=== PATIENT | female | born 1975 | race Caucasian/White ===

== ENCOUNTER 2022-04-04 23:39 | Observation (INO) ==
[2022-04-05 01:07] LABS: Basophils # (auto) 0.03 K/uL (0-0.2); Basophils % (auto) 0.5 %; Eosinophils # (auto) 0.04 K/uL (0-0.50); Eosinophils % (auto) 0.6 %; Hematocrit (blood only) 36.3 % (34.1-44.9); Hemoglobin 12.5 g/dl (12.0-16.0); Immature Granulocytes # (auto) 0.06 K/uL (0.00-0.02); Immature Granulocytes % (auto) 0.9 %; Lymphocytes % (auto) 9.1 %; Mean Corpuscular Hemoglobin 29.5 pg (25.0-34.0); Mean Corpuscular Hgb Conc 34.4 g/dL (32.0-36.0); Mean Corpuscular Volume 85.6 fL (80.0-100.0); Mean Platelet Volume 10.9 fL (9.4-12.3); Monocytes % (auto) 9.1 %; Neutrophils # (auto) 5.26 K/uL (1.4-6.5); Neutrophils % (auto) 79.8 %; Platelet Count 198 K/uL (130-400); RBC Morphology Unremarkable; RDW Coefficient of Variation 15.5 % (11.5-14.5); RDW Standard Deviation 46.9 fL (36.4-46.3); Red Blood Count 4.24 M/uL (3.93-5.22); White Blood Count 6.59 K/ul (4.8-10.8)
[2022-04-05 01:12] LABS: Albumin Globulin Ratio 1.6 (0.9-2); Albumin Level 4.2 gm/dl (3.4-5.0); BUN Creatinine Ratio 8.8 (10-20); Bilirubin,Total 0.4 mg/dl (0.2-1.0); Calcium 9.6 mg/dl (8.5-10.1); Creatinine Clr Calc Pharmacy 96.7 ml/min; Est GFR (African American) 123.3 ml/min; Est GFR (Non-African American) 106.4 ml/min; Globulin 2.7 gm/dl (2.5-4.0); Total Protein 6.9 gm/dl (6.0-8.3)
--- NOTE | 2022-04-05 01:52 | Emergency Department Note ---
History of Present Illness General Chief complaint: Cough Stated complaint: SHARP UPPER LEFT CHEST PAIN Time Seen by Provider: 04/05/22 00:54 History of Present Illness This 46-year-old presents to the ER complaining of chest pain and breathing issues who has metastatic breast carcinoma who finished radiation 3 weeks ago and is not receiving chemotherapy Location: Chest Quality: Painful Severity: Moderate Duration: Past several weeks Timing: Started several weeks ago Context: Symptoms got worse and patient came in Modifying factors: better with rest; worse with activity Patient denies fever, chills, abdominal pain, leg pain or swelling. Home Medications Medication Instructions Recorded Confirmed Type Multiple Suppliments 1 dose PO DAILY 04/05/22 04/05/22 History dexamethasone 2 mg tablet 0 mg PO DIRECTED 04/05/22 04/05/22 History levetiracetam 500 mg tablet 0 mg PO BID 04/05/22 04/05/22 History ([place]) memantine 5 mg tablet 0 mg PO BID 04/05/22 04/05/22 History Allergies Allergy/AdvReac Type Severity Reaction Status Date / Time No Known Allergies Allergy Verified 04/05/22 00:16 Past Med/Surg History Medical History (Updated 04/05/22 @ 03:57 by Nighat Schumacher) Breast cancer Surgical History (Updated 04/05/22 @ 01:49 by Shawna Roman PA-C) No pertinent past surgical history Social History Smoking Status: Never smoker Preferred Language: Romansh Feels Safe at Home: Yes Review of Systems A total of 10 systems reviewed and were otherwise negative Physical Exam Vital Signs Vital Signs - 24 hr 04/04/22 23:45 04/05/22 00:26 04/05/22 02:04 Temperature 36.6 C Temperature Source Temporal Artery Scan Pulse Rate 102 H 89 90 Pulse Rate from SpO2 Sensor Respiratory Rate 18 24 15 Respiratory Effort / Characteristics Non-Labored Respiratory Depth Normal Blood Pressure 117/85 123/81 117/77 Blood Pressure Mean 95 95 90 Pulse Oximetry 93 91 95 Oxygen Delivery Method Room Air Room Air Room Air Sepsis Recent Fever Within 48 Hours No Sepsis New/Unexplained Change in Mental Status No Sepsis Action Taken by Nursing No Action Required 04/05/22 02:30 Temperature Temperature Source Pulse Rate 86 Pulse Rate from SpO2 Sensor 86 Respiratory Rate 19 Respiratory Effort / Characteristics Respiratory Depth Blood Pressure 120/80 Blood Pressure Mean 93 Pulse Oximetry 89 L Oxygen Delivery Method Room Air Sepsis Recent Fever Within 48 Hours Sepsis New/Unexplained Change in Mental Status Sepsis Action Taken by Nursing VITALS: Vitals are noted on the nurse's note and reviewed by myself. Vital sig ns pulse ox 91%. GENERAL: Pleasant female who appears uncomfortable, in no acute distress, nondiaphoretic, well-developed well-nourished. SKIN: The skin was without rashes, erythema, edema, or bruising. There is no tenting of the skin. Capillary reflex less than 2 seconds. HEAD: Normocephalic atraumatic. EARS: External auditory canals clear, tympanic membranes pearly tony without erythema or effusion bilaterally. EYES: Pupils equal round and reactive to light and accommodation. Conjunctivae without injection, sclerae without icterus. Extraocular movements intact. NOSE: Patent, turbinates without inflammation or discharge. MOUTH: Mucous membranes moist. Pharynx without erythema or exudate. Uvula midline. Airway patent. Tongue does not deviate. NECK: Supple without nuchal rigidity. No lymphadenopathy. No thyromegaly. Cervical spine is nontender. No JVD. HEART: Regular rate and rhythm LUNGS: Diminished breath sounds. no retractions or accessory muscle use. ABDOMEN: Positive bowel sounds x 4. Normal tympanic percussion. Soft, nontender, without masses or organomegaly. Beltrán sign negative. No guarding or rebound tenderness. No CVA tenderness MUSCULOSKELETAL: No muscle atrophy, erythema, or edema noted. NEURO: Patient was alert and oriented to person place and time. Normal sensation to light and sharp touch. No focal neurological deficits. Course Administered Medications Discontinued Medications Albuterol (Albut/Ipratrop 3mg/0.5mg Neb 3 Ml Vial) 3 ml NEB NOW STA; Protocol Stop: 04/05/22 02:59 Last Admin: 04/05/22 03:30 Dose: 3 ml Documented By: DP Dexamethasone Sodium Phosphate (DexamethasonePf 10 Mg/Ml Vial) 10 mg IV NOW ONE Stop: 04/05/22 02:59 Last Admin: 04/05/22 03:30 Dose: 10 mg Documented By: LA Ioversol (Optiray 320 500ml) 125 ml IV ONCE ONE Stop: 04/05/22 02:03 Last Admin: 04/05/22 02:02 Dose: 92 ml Documented By: CAROLE Medical Decision Making Medical Records Attestation: I reviewed the patient's medical records. Home Medications Current Medication List: was personally reviewed by me Laboratory Data Attestation: I reviewed the patient's lab results. Result diagrams: 04/05/22 00:40 04/05/22 00:40 Lab Results 04/05/22 04/05/22 04/05/22 Range/Units 00:40 00:40 02:40 WBC 6.59 (4.8-10.8) K/ul RBC 4.24 (3.93-5.22) M/uL Hgb 12.5 (12.0-16.0) g/dl Hct 36.3 (34.1-44.9) % MCV 85.6 (80.0-100.0) fL MCH 29.5 (25.0-34.0) pg MCHC 34.4 (32.0-36.0) g/dL RDW Std Deviation 46.9 H (36.4-46.3) fL RDW Coeff of Dorene 15.5 H (11.5-14.5) % Plt Count 198 (130-400) K/uL MPV 10.9 (9.4-12.3) fL Immature Gran % (Auto) 0.9 % Neut % (Auto) 79.8 % Lymph % (Auto) 9.1 % Flagler % (Auto) 9.1 % Eos % (Auto) 0.6 % Baso % (Auto) 0.5 % Neut # (Auto) 5.26 (1.4-6.5) K/uL Lymph # (Auto) 0.60 L (1.2-3.4) K/uL Flagler # (Auto) 0.60 (0.24-0.82) K/uL Eos # (Auto) 0.04 (0-0.50) K/uL Baso # (Auto) 0.03 (0-0.2) K/uL Immature Gran # (Auto) 0.06 H (0.00-0.02) K/uL RBC Morphology Unremarkable Sodium 136 (136-145) mmol/L Potassium 4.0 (3.5-5.1) mmol/L Chloride 100 (98-107) mmol/L Carbon Dioxide 27 (21-32) mmol/L Anion Gap 9 (3-11) BUN 6 (6-23) mg/dl Creatinine 0.68 (0.6-1.2) mg/dl Est Cr Clr Drug Dosing 96.7 ml/min Est GFR ( Amer) 123.3 ml/min Est GFR (Non-Af Amer) 106.4 ml/min BUN/Creatinine Ratio 8.8 L (10-20) Glucose 99 (70-99(Fasting)) mg/dl Calcium 9.6 (8.5-10.1) mg/dl Total Bilirubin 0.4 (0.2-1.0) mg/dl AST 38 (13-39) U/L ALT 24 (7-52) U/L Alkaline Phosphatase 68 (34-104) U/L Troponin I High Sens 33.1 H (0-14) pg/ml Total Protein 6.9 (6.0-8.3) gm/dl Albumin 4.2 (3.4-5.0) gm/dl Globulin 2.7 (2.5-4.0) gm/dl Albumin/Globulin Ratio 1.6 (0.9-2) SARS-CoV-2, RNA, NAAT NEGATIVE (NEGATIVE) Imaging Data Attestation: I personally reviewed and interpreted this imaging study as follows: MDM Narrative Prior records/ancillary studies reviewed. Triage Nursing notes reviewed. Additional history obtained from family. The patient's history was concerning for chest pain. Differential diagnosis: Etiologies such as cardiac ischemia, aortic dissection, pulmonary embolism, pneumonia, pneumothorax, musculoskeletal, infections, pericarditis, myocarditis, esophageal rupture, gastrointestinal, as well as others were entertained. Physical examination: As above. ER treatment provided: An order was placed for continuous cardiac monitoring. The monitor shows a rate of 60-100 with a sinus rhythm. Patient declined pain meds, nebulizer, steroids, Zosyn, vancomycin On reassessment the patient felt better. Diagnostic interpretation by me: The electrocardiogram was negative for pathologic change. Order for chest pain EKG: Normal sinus, normal intervals, no acute ST-T wave changes. Normal sinus rhythm interpreted by myself I think arrhythmia is unlikely. EKG shows normal sinus rhythm with no interval abnormalities such as QT prolongation or WPW. There are no findings to suggest Brugada syndrome. Cardiac monitoring in the emergency department reveals no tachycardic or bradycardic dysrhythmia. Hypertrophic cardiomyopathy was considered but there are no clear historical elements pointing toward this. EKG is not suggestive. The QRS voltage is not extremely large and there are no suggestive Q waves. The labs revealed elevated troponin, negative COVID Imaging studies: Chest x-ray with multiple nodules concerning for metastatic cancer per my interpretation. No free air CTA CHEST: No pulmonary emboli. Diffuse pulmonary nodules. Bilateral perihilar masses compressing the broncho- vasculature. Right middle lobe segmental atelectasis. Trace left-sided pleural effusion. No pneumothorax. Normal aorta. No pericardial effusion. Multiple liver metastases. Right breast skin thickening and underlying masses. Radiologist: Michele Arango MD HEART SCORE: Hx: high/mod/low suspicion: 0 ECG: ST depression/nonspecific changes/normal: 0 Age: Greater than 65/45-64/less than 45: 0 Risk factors: (Hypertension, hyperlipidemia, diabetes, coronary disease, tobacco use, cocaine use): 1 Troponin: Greater than 2 times normal limits/1-2 times normal limits/normal: 1 Total: 2 Consultation: A consultation was placed with the hospitalist. The case was discussed and diagnostics were reviewed. The patient was evaluated in the ER for further treatment. Exam and history seem consistent with metastatic breast cancer with increased progression in the lungs. Patient could have an underlying pneumonia 2. Antibiotics were added. Patient was short of breath. Sats were 89%. Medicine was consulted. She will be admitted By the evaluation outlined above emergent etiologies such as aortic dissection, pulmonary embolism, pneumothorax, pericarditis, myocarditis, gastrointestinal, as well as others were deemed relatively unlikely. The pt informed about the findings as listed above. All questions were answered and pleased with the treatment. The chart was completed utilizing [employer] Speech voice recognition software. Grammatical errors, random word insertions, pronoun errors, and incomplete sentences are an occassional consequence of this system due to software limitations, ambient noise, and hardware issues. Any formal questions or concerns about the content, text, or information contained within the body of this dictation should be directly addressed to the physician back office medical assistant for clarification. Impression & Plan Chest pain, Acute dyspnea, Breast cancer metastasized to lung Discharge Plan Visit Data Chief Complaint: Cough Stated Complaint: SHARP UPPER LEFT CHEST PAIN ED Provider: Michele Rocha ED Midlevel Provider: Shawna Roman Discharge Problem: Chest pain, Acute dyspnea, Breast cancer metastasized to lung Patient Disposition: Admitted As Inpatient Condition: Fair Forms Stand Alone Forms: My [facility] [employer] Prescriptions Prescriptions: No Action levetiracetam [Keppra] 500 mg Tablet 0 mg PO BID Rx Instructions: PT UNSURE OF STRENGTH, UNABLE TO VERIFY dexamethasone 2 mg Tablet 0 mg PO DIRECTED Rx Instructions: UNABLE TO VERIFY memantine 5 mg Tablet 0 mg PO BID Rx Instructions: PT UNSURE OF STRENGTH, TAKES 1/2 TAB BID. UNABLE TO VERIFY Multiple Suppliments 1 dose PO DAILY Rx Instructions: PER PT "TAKE MULTIPLE SUPPLIMENTS & VITAMINS DAILY". Referrals Referrals: Osbaldo Garnica MD [Primary Care Provider] -
[2022-04-05] MEDS ORDERED: OPTIRAY 320 500ml IV ONE (02:02)
[2022-04-05 02:04] LABS: Troponin I High Sensitivity 33.1 pg/ml (0-14)
[2022-04-05] MEDS ORDERED: dexAMETHasone**PF** 10 MG/ML VIAL IV ONE (02:58)
[2022-04-05] MEDS ORDERED: ALBUT/IPRATROP 3MG/0.5MG NEB 3 ML VIAL NEB STA (02:58)
--- NOTE | 2022-04-05 03:42 | History & Physical Report ---
Date of Service April 05, 2022 Assessment & Plan (1) Breast cancer metastasized to lung: Plan: Breast cancer metastasized to lung/secondary bacterial pneumonia/hypoxia- Hypoxia likely secondary to metastatic disease and secondary bacterial infection Received dexamethasone 10 mg IV in ED Dexamethasone 6 mg IV every 8 hours Vancomycin IV per pharmacokinetic monitoring Zosyn 4.5 g IV every 8 hours Duonebs every 4 hours while awake and every 2 hours when necessary. Guaifenesin extended release 500 mg p.o. twice daily Sputum gram stain and culture Coordinate care with radiation oncology at [facility] (2) Elevated troponin: Plan: The patient will be admitted to telemetry for serial cardiac enzymes, serial EKG's, cardiac rhythm monitoring and a 2-D echocardiogram with Dopplers. Likely supply demand mismatch Suspect some element of pulmonary hypertension secondary to metastatic disease (3) Chest pain: Plan: Likely combination of metastatic disease and infection Presently undergoing radiation therapy for pathologic sternal fracture (4) Acute dyspnea: (5) Pneumonia: History of Present Illness Chief Complaint: The patient presents to the emergency department with complaint of worsening shortness of breath, cough changing from clear to yellowish sputum, chest pain worse with breathing, and increasing size of right breast. Primary Care Provider: Osbaldo Garnica MD The patient is a 46-year-old female with a past medical history including metastatic breast cancer to lung, who presents to the emergency department with symptoms as noted above. She has been undergoing radiation therapy with radiation oncology at [facility], and has not yet undergone any chemotherapy or hormone therapy. Allergies Allergy/AdvReac Type Severity Reaction Status Date / Time No Known Allergies Allergy Verified 04/05/22 00:16 Home Medications Medication Instructions Recorded Confirmed Type Multiple Suppliments 1 dose PO DAILY 04/05/22 04/05/22 History dexamethasone 2 mg tablet 0 mg PO DIRECTED 04/05/22 04/05/22 History levetiracetam 500 mg tablet 0 mg PO BID 04/05/22 04/05/22 History (Keppra) memantine 5 mg tablet 0 mg PO BID 04/05/22 04/05/22 History Past Med/Surg History Medical History (Updated 04/05/22 @ 04:19 by Gilberto Nowak MD) Breast cancer Surgical History (Updated 04/05/22 @ 01:49 by Shawna Roman PA-C) No pertinent past surgical history Social History Smoking Status: Never smoker Preferred Language: Luxembourgish Feels Safe at Home: Yes Review of Systems Review of Systems: The patient denies palpitations, cough, lower extremity swelling, sore throat, fevers, chills, sweats, nausea, vomiting, diarrhea , constipation, abdominal pain, pelvic pain, blood in urine or stool, dysuria, urinary frequency or urgency, lightheadedness, dizziness, headache, memory loss, loss of consciousness, rash, abnormal bruising or bleeding, imbalance, focal or generalized weakness, numbness or tingling in arms or legs, generalized arthralgias or myalgias, back or neck pain, or night sweats. The review of systems is otherwise negative other than for that already noted above, and at least 10 systems have been reviewed. Physical Exam Physical Exam: The patient is awake, alert and oriented 3, well developed and well nourished, normocephalic and atraumatic, lying in bed and in no acute distress. HEENT--PERRL, EOMI, mucous membranes and oropharynx dry. Neck--supple. No JVD. No bruits. Thyroid normal, trachea midline, no adenopathy. Heart--normal S1 and S2. No murmurs, rubs or gallops. Lungs--coarse breath sounds bilaterally. no respiratory distress, no accessory muscle use. Abdomen--normal bowel sounds and soft. Nontender. Nondistended, no hernias or masses, no organomegaly. Extremities--no cyanosis or clubbing. No edema. Dermatologic--normal skin turgor, normal color, no abnormal lymph nodes, no rash. Neurologic--cranial nerves II through XII grossly intact. Rheumatologic--normal range of motion. Psychiatric--normal affect. Results & Data Results & Data ([facility]) Vital Signs (Past 12 Hours) Vital Signs Temp Pulse Resp BP Pulse Ox O2 Del Method 04/05/22 02:30 86 19 120/80 89 L Room Air 04/05/22 02:04 90 15 117/77 95 Room Air 04/05/22 00:26 89 24 123/81 91 Room Air 04/04/22 23:45 36.6 C 102 H 18 117/85 93 Room Air Laboratory Results Laboratory Results WBC 6.59 K/ul (4.8-10.8) 04/05/22 00:40 RBC 4.24 M/uL (3.93-5.22) 04/05/22 00:40 Hgb 12.5 g/dl (12.0-16.0) 04/05/22 00:40 Hct 36.3 % (34.1-44.9) 04/05/22 00:40 MCV 85.6 fL (80.0-100.0) 04/05/22 00:40 MCH 29.5 pg (25.0-34.0) 04/05/22 00:40 MCHC 34.4 g/dL (32.0-36.0) 04/05/22 00:40 RDW Std Deviation 46.9 fL (36.4-46.3) H 04/05/22 00:40 RDW Coeff of Dorene 15.5 % (11.5-14.5) H 04/05/22 00:40 Plt Count 198 K/uL (130-400) 04/05/22 00:40 MPV 10.9 fL (9.4-12.3) 04/05/22 00:40 Immature Gran % (Auto) 0.9 % 04/05/22 00:40 Neut % (Auto) 79.8 % 04/05/22 00:40 Lymph % (Auto) 9.1 % 04/05/22 00:40 Maury % (Auto) 9.1 % 04/05/22 00:40 Eos % (Auto) 0.6 % 04/05/22 00:40 Baso % (Auto) 0.5 % 04/05/22 00:40 Neut # (Auto) 5.26 K/uL (1.4-6.5) 04/05/22 00:40 Lymph # (Auto) 0.60 K/uL (1.2-3.4) L 04/05/22 00:40 Maury # (Auto) 0.60 K/uL (0.24-0.82) 04/05/22 00:40 Eos # (Auto) 0.04 K/uL (0-0.50) 04/05/22 00:40 Baso # (Auto) 0.03 K/uL (0-0.2) 04/05/22 00:40 Immature Gran # (Auto) 0.06 K/uL (0.00-0.02) H 04/05/22 00:40 RBC Morphology Unremarkable 04/05/22 00:40 Sodium 136 mmol/L (136-145) 04/05/22 00:40 Potassium 4.0 mmol/L (3.5-5.1) 04/05/22 00:40 Chloride 100 mmol/L (98-107) 04/05/22 00:40 Carbon Dioxide 27 mmol/L (21-32) 04/05/22 00:40 Anion Gap 9 (3-11) 04/05/22 00:40 BUN 6 mg/dl (6-23) 04/05/22 00:40 Creatinine 0.68 mg/dl (0.6-1.2) 04/05/22 00:40 Est Cr Clr Drug Dosing 96.7 ml/min 04/05/22 00:40 Est GFR ( Amer) 123.3 ml/min 04/05/22 00:40 Est GFR (Non-Af Amer) 106.4 ml/min 04/05/22 00:40 BUN/Creatinine Ratio 8.8 (10-20) L 04/05/22 00:40 Glucose 99 mg/dl (70-99(Fasting)) 04/05/22 00:40 Calcium 9.6 mg/dl (8.5-10.1) 04/05/22 00:40 Total Bilirubin 0.4 mg/dl (0.2-1.0) 04/05/22 00:40 AST 38 U/L (13-39) 04/05/22 00:40 ALT 24 U/L (7-52) 04/05/22 00:40 Alkaline Phosphatase 68 U/L (34-104) 04/05/22 00:40 Troponin I High Sens 33.1 pg/ml (0-14) H 04/05/22 00:40 Total Protein 6.9 gm/dl (6.0-8.3) 04/05/22 00:40 Albumin 4.2 gm/dl (3.4-5.0) 04/05/22 00:40 Globulin 2.7 gm/dl (2.5-4.0) 04/05/22 00:40 Albumin/Globulin Ratio 1.6 (0.9-2) 04/05/22 00:40 SARS-CoV-2, RNA, NAAT NEGATIVE (NEGATIVE) 04/05/22 02:40 Code Status & VTE Plan Code Status Full code VTE Prophylaxis Plan VTE Prophylaxis will be ordered: Yes PG Care Time/CCT Total # of Minutes Spent Total Time Spent with Patient: Total time spent is greater than 50% in coordination of care (as documented) at patient's floor/unit and/or counseling patient: Coding Level of Care Code 17390 Initial Inpt Care Lvl 3 Diagnoses Breast cancer metastasized to lung C50.919; C78.00 Elevated troponin R77.8 Chest pain R07.9 Acute dyspnea R06.00 Pneumonia J18.9
[2022-04-05] MEDS ORDERED: PIPERACILLIN/TAZOBACTAM 4.5 GM/120 ML BAG IV ONE (03:57)
[2022-04-05] MEDS ORDERED: VANCOMYCIN CONSULT ACTIVE PRN ×2 (03:57→04:53)
[2022-04-05] MEDS ORDERED: VANCOMYCIN HCL 1,250 MG in SODIUM CHLORIDE 0.9% 500 ML IV ONE (03:57)
[2022-04-05] MEDS ORDERED: ONDANSETRON INJ 2 MG/ML 2 ML VIAL IV PRN (04:53)
[2022-04-05] MEDS ORDERED: ACETAMINOPHEN 325 MG TAB PO PRN (04:53)
[2022-04-05] MEDS: ALBUT/IPRATROP 3MG/0.5MG NEB 3 ML VIAL NEB SCH ×2 (05:53→10:30)
--- NOTE | 2022-04-05 07:58 | XRay Report ---
XR chest 1V portable HISTORY: 46 years-old Female pain acute chest pain COMPARISON: CTA chest of same day, chest radiograph 02/03/2022 TECHNIQUE: AP view of the chest FINDINGS: Cardiac silhouette is upper limits of normal in size. Bilateral hilar prominence. Reticular nodular o pacities are present along with innumerable pulmonary metastasis. 7.3 cm dominant left upper lobe/mariah gular mass appears to have increased in size from prior. Small left pleural effusion. No pneumothorax . Osseous metastatic disease of the sternum is better appreciated on the chest CT. IMPRESSION: 1. Progressively worsened pulmonary metastatic disease. 2. Interstitial coarsening has also worsened from the prior study which may represent lymphangitic ca rcinomatosis versus superimposed pulmonary edema. 3. Small left pleural effusion. ACT 112: Negative or not required by law. The above report was generated using voice recognition software. It may contain grammatical, syntax o r spelling errors. Electronically signed by: Peña Powers M.D. 04/05/2022 7:57 AM
[2022-04-05] MEDS ORDERED: PIPERACILLIN/TAZOBACTAM 3.375 GM in DEXTROSE 5% 100 ML IV SCH (08:00)
[2022-04-05] MEDS: dexAMETHasone 6 MG in SYRINGE 0 ML IV SCH ×2 (09:17→16:38)
[2022-04-05] MEDS: levETIRAcetam 500 MG TAB PO SCH (09:25)
[2022-04-05] MEDS: MEMANTINE HCL 10 MG TAB PO SCH ×2 (09:25→20:37)
[2022-04-05] MEDS: ENOXAPARIN INJ 40 MG/0.4 ML SYR SQ SCH (09:25)
--- NOTE | 2022-04-05 09:28 | CT Scan Report ---
CT angio chest PE protocol CLINICAL HISTORY: PE, known breast CA w/ mets TECHNIQUE: Multidetector row helical CT of the chest was performed with angiographic protocol. Gandara l and sagittal reformations were obtained. Coronal and sagittal MIPS were obtained from the axial israel a set and were submitted for review. Automated dose lowering techniques and/or adjustment according to patient size were utilized for this exam. CT DOSE: 253.12 mGy.cm Comparison: Comparison is made to CTA chest 02/04/2022 FINDINGS: Lungs and pleura: Innumerable pulmonary nodules are seen including a dominant left upper lobe mass me asuring 67 mm. Airways are narrowed by bilateral hilar masses and there is postobstructive atelectasi s most prominent in the right middle lobe. There is interlobular septal thickening. There is a trace left pleural effusion, unchanged from prior exam. Heart and pericardium: Heart size is normal. No pericardial effusion. Vessels: No evidence of pulmonary embolism. Narrowing of the pulmonary vasculature biperihilar mass i s noted. Mediastinum and joy: Unremarkable. Chest wall and lower neck: Primary breast mass in the right breast is again noted. 21 x 25 mm mass is in the right axilla with additional subcentimeter nodes. Skin thickening is noted about the right br east. Abdomen: Partial visualization of numerous liver masses. Bones: Unremarkable. IMPRESSION: 1. No evidence of pulmonary embolism. 2. Numerous pulmonary nodules and masses, similar in appearance to prior exam. 3. Left pleural effusion and pulmonary traverses the expected disease. 4. Postobstructive narrowing in the airways most prominently in the right middle lobe. 5. Right breast mass and lymph nodes as above. ACT 112: Negative or not required by law. Electronically signed by: Zoltan Vincent M.D. 04/05/2022 9:26 AM
[2022-04-05] MEDS: VANCOMYCIN HCL 1,250 MG in SODIUM CHLORIDE 0.9% 250 ML IV SCH ×2 (10:34→22:42)
[2022-04-05 12:03] LABS: Appearance Urine Clear (Clear); Bacteria Urine Automated Negative (Negative); Bilirubin Urine Negative (Negative); Blood Urine 2+ (Negative); Cast Urine Automated 0 /lpf (0-5); Color Urine Yellow; Epithelial Cell Urine Auto 0-5 /lpf (0-5); Glucose Urine UA Negative (Negative); Ketones Urine Trace (Negative); Leukocyte Esterase Urine Negative (Negative); Nitrite Urine Negative (Negative); Protein Urine Negative (Negative); Specific Gravity Urine 1.017 (1.000-1.030); Urobilinogen Urine Negative (Negative); WBC Urine Automated 0 /hpf (0-5)
[2022-04-05] MEDS ORDERED: ALBUT/IPRATROP 3MG/0.5MG NEB 3 ML VIAL NEB PRN (13:03)
[2022-04-05] MEDS: ADVANCED PROBIOTIC 1250 MG CAPSULE PO SCH (13:22)
--- NOTE | 2022-04-05 13:43 | Pharmacy Report ---
Pharmacy PK ABX Note - Date of Service April 05, 2022 - Assessment and Plan 46 year old F receiving Vancomycin and Zosyn for treatment of possible pneumonia. * PMHx significant for breast cancer with metastasis to lung currently undergoing radiation. * Presents with hypoxia but now 98% on room air. Afebrile. No white count. Patient is not neutropenic. Renal fxn at baseline. * Sputum culture ordered but not collected yet. Covid negative. * Recommended adding atypical coverage to provider who agreed with switch from Zosyn to Levaquin. Urine legionella and MRSA nasal swab ordered. Procalcitonin ordered for tomorrow morning as well but may not be reliable in a patient with active metastatic disease. Plan Vancomycin * Loading dose: 1250 mg IV x 1 * Maintenance dose: 1250 mg IV every 12 hours * Regimen is predicted to achieve target AUC/PATY of 400-600 mg/L.hr * Level will be ordered if therapy extends beyond 48 hours Pharmacy will continue to follow and will adjust dose/frequency as necessary. Thank you. Pharmacy has transitioned to AUC monitoring for vancomycin. AUC/PATY is the preferred PK/PD target and is associated with decreased risk of nephrotoxicity compared to traditional trough targets.
[2022-04-05] MEDS ORDERED: levoFLOXacin/D5W 750 MG/150 ML BAG IV SCH (14:00)
--- NOTE | 2022-04-05 14:04 | Hospitalist Progress Note ---
Date of Service April 05, 2022 Assessment & Plan (1) Breast cancer metastasized to lung: Plan: Breast cancer metastasized to lung Not currently on Chemotherapy, but received radiation therapy to the brain Chest x ray shows evidence of some mild congestion CTA did not show any evidence of PE Hypoxia likely secondary to metastatic disease and pulmonary congestion Received dexamethasone 10 mg IV in ED Dexamethasone 6 mg IV every 8 hours Vancomycin IV per pharmacokinetic monitoring Zosyn 4.5 g IV every 8 hours Duonebs every 4 hours while awake and every 2 hours when necessary. Guaifenesin extended release 500 mg p.o. twice daily Coordinate care with radiation oncology at [facility] (2) Elevated troponin: Plan: The patient will be admitted to telemetry for serial cardiac enzymes, serial EKG's, cardiac rhythm monitoring and a 2-D echocardiogram with Dopplers. Likely supply demand mismatch Trop has been trending down (3) Chest pain: Plan: Likely combination of metastatic disease No evidence of ACS Trops trending down EKG with no ST changes (4) Acute dyspnea: (5) Pneumonia: Plan Hopefully d/c in the next 24 hrs Admission and Anticipated Discharge Date Admission Date: April 05, 2022 Subjective patient seen an examined today, says she feels better Review of Systems Review of Systems: All systems reviewed are negative, apart from the ones contained in the history. Physical Exam Physical Exam: The patient is awake, alert and oriented 3, well developed and well nourished, normocephalic and atraumatic, lying in bed and in no acute distress. HEENT--PERRL, EOMI, mucous membranes and oropharynx mildly dry Neck--supple. No JVD. No bruits. Thyroid normal, trachea midline, no adenopathy. Heart--normal S1 and S2. No murmurs, rubs or gallops. Lungs--Reduced air entry on auscultation Abdomen--normal bowel sounds and soft. Mild epigastric and left sided abdominal pain Extremities--no cyanosis or clubbing. No edema. Dermatologic--normal skin turgor, normal color, no abnormal lymph nodes, no rash. Neurologic--cranial nerves II through XII grossly intact. Rheumatologic--normal range of motion. Psychiatric--normal affect. Results & Data Results & Data ([facility]) Vital Signs (Past 12 Hours) Vital Signs Temp Pulse Pulse Resp BP BP Pulse Ox 04/05/22 11:18 98.4 F 107 H 18 117/70 98 04/05/22 10:30 113 H 18 95 04/05/22 08:20 98.2 F 99 H 18 97/83 L 96 04/05/22 04:43 88 04/05/22 05:53 69 16 91 04/05/22 04:54 98.8 F 101 H 20 118/73 95 04/05/22 04:16 92 04/05/22 04:16 105/72 04/05/22 04:10 88 L 04/05/22 04:00 92 04/05/22 03:50 92 04/05/22 03:40 96 04/05/22 03:30 87 105/70 89 L 04/05/22 03:07 90 133/64 91 04/05/22 02:30 86 19 120/80 89 L 04/05/22 02:04 90 15 117/77 95 O2 Del Method 04/05/22 11:18 Room Air 04/05/22 10:30 Room Air 04/05/22 08:20 Room Air 04/05/22 04:43 04/05/22 05:53 Room Air 04/05/22 04:54 Room Air 04/05/22 04:16 04/05/22 04:16 04/05/22 04:10 04/05/22 04:00 04/05/22 03:50 04/05/22 03:40 04/05/22 03:30 Room Air 04/05/22 03:07 Room Air 04/05/22 02:30 Room Air 04/05/22 02:04 Room Air PG Care Time/CCT Total # of Minutes Spent Total Time Spent with Patient: Total time spent is greater than 50% in coordination of care (as documented) at patient's floor/unit and/or counseling patient: Coding Level of Care Code 37426 Subseq Hosp Care Lvl 2 Diagnoses Breast cancer metastasized to lung C50.919; C78.00 Elevated troponin R77.8 Chest pain R07.9 Acute dyspnea R06.00 Pneumonia J18.9 Time Spent (min) 35
--- NOTE | 2022-04-05 18:12 | XCELERA ---
[id number]
[2022-04-06] MEDS: dexAMETHasone 6 MG in SYRINGE 0 ML IV SCH ×2 (00:12→07:52)
--- NOTE | 2022-04-06 05:18 | Electrocardiogram Report ---
Test Reason : Blood Pressure : / mmHG Vent. Rate : 079 BPM Atrial Rate : 079 BPM P-R Int : 172 ms QRS Dur : 072 ms QT Int : 362 ms P-R-T Axes : 054 008 041 degrees QTc Int : 415 ms Normal sinus rhythm with sinus arrhythmia Normal ECG When compared with ECG of 03-FEB-2022 23:33, No significant change was found Confirmed by Corby Rock ([id number]) on 04/06/2022 5:17:44 AM Referred By: REFERRED SELF Confirmed By:Corby Rock
[2022-04-06] MEDS: ENOXAPARIN INJ 40 MG/0.4 ML SYR SQ SCH (07:51)
[2022-04-06] MEDS: ADVANCED PROBIOTIC 1250 MG CAPSULE PO SCH (07:52)
[2022-04-06] MEDS: levETIRAcetam 500 MG TAB PO SCH (07:53)
[2022-04-06 08:00] LABS: Basophils # (auto) 0.02 K/uL (0-0.2); Basophils % (auto) 0.2 %; Eosinophils # (auto) 0.01 K/uL (0-0.50); Eosinophils % (auto) 0.1 %; Immature Granulocytes # (auto) 0.09 K/uL (0.00-0.02); Immature Granulocytes % (auto) 0.8 %; Lymphocytes # (auto) 0.56 K/uL (1.2-3.4); Mean Corpuscular Hemoglobin 29.3 pg (25.0-34.0); Mean Corpuscular Hgb Conc 34.3 g/dL (32.0-36.0); Mean Corpuscular Volume 85.4 fL (80.0-100.0); Mean Platelet Volume 11.1 fL (9.4-12.3); Monocytes # (auto) 0.58 K/uL (0.24-0.82); Monocytes % (auto) 5.2 %; Neutrophils # (auto) 9.99 K/uL (1.4-6.5); Neutrophils % (auto) 88.7 %; Platelet Count 200 K/uL (130-400); RDW Coefficient of Variation 15.9 % (11.5-14.5); RDW Standard Deviation 48.7 fL (36.4-46.3); White Blood Count 11.25 K/ul (4.8-10.8)
[2022-04-06 08:36] LABS: Albumin Globulin Ratio 1.4 (0.9-2); Albumin Level 3.8 gm/dl (3.4-5.0); BUN Creatinine Ratio 16.7 (10-20); Bilirubin,Total 0.3 mg/dl (0.2-1.0); Calcium 9.3 mg/dl (8.5-10.1); Creatinine Clr Calc Pharmacy 99.2 ml/min; Est GFR (African American) 124.5 ml/min; Est GFR (Non-African American) 107.4 ml/min; Globulin 2.8 gm/dl (2.5-4.0); Magnesium 2.2 mg/dl (1.7-2.4); Total Protein 6.6 gm/dl (6.0-8.3)
[2022-04-06] MEDS: MEMANTINE HCL 10 MG TAB PO SCH (09:56)
[2022-04-06] MEDS: VANCOMYCIN HCL 1,250 MG in SODIUM CHLORIDE 0.9% 250 ML IV SCH (10:28)
[2022-04-06] MEDS ORDERED: levoFLOXacin 750 MG TAB PO SCH (14:00)
--- NOTE | 2022-04-06 16:29 | Discharge Summary ---
Date of Service April 06, 2022 Admission HPI Per Admitting Provider The patient is a 46-year-old female with a past medical history including metastatic breast cancer to lung, who presents to the emergency department with symptoms as noted above. She has been undergoing radiation therapy with radiation oncology at [facility], and has not yet undergone any chemotherapy or hormone therapy. Principal Diagnosis Metastatic lung disease Discharge Exam The patient is awake, alert and oriented 3, well developed and well nourished, normocephalic and atraumatic, lying in bed and in no acute distress. HEENT--PERRL, EOMI, mucous membranes and oropharynx mildly dry Neck--supple. No JVD. No bruits. Thyroid normal, trachea midline, no adenopathy. Heart--normal S1 and S2. No murmurs, rubs or gallops. Lungs--Reduced air entry on auscultation Abdomen--normal bowel sounds and soft. Mild epigastric and left sided abdominal pain Extremities--no cyanosis or clubbing. No edema. Dermatologic--normal skin turgor, normal color, no abnormal lymph nodes, no rash. Neurologic--cranial nerves II through XII grossly intact. Rheumatologic--normal range of motion. Psychiatric--normal affect. Discharge Data Allergies Allergy/AdvReac Type Severity Reaction Status Date / Time No Known Allergies Allergy Verified 04/05/22 00:16 Consultations 04/05/22 02:58 ED Decision to Admit Stat Ordered Studies 04/05/22 01:05 CT angio chest PE protocol Urgent Hospital Course (1) Breast cancer metastasized to lung: Breast cancer metastasized to lung Not currently on Chemotherapy, but received radiation therapy to the brain Chest x ray shows evidence of some mild congestion CTA did not show any evidence of PE Hypoxia likely secondary to metastatic disease and pulmonary congestion Received dexamethasone 10 mg IV in ED Dexamethasone 6 mg IV every 8 hours Vancomycin IV per pharmacokinetic monitoring Zosyn 4.5 g IV every 8 hours Duonebs every 4 hours while awake and every 2 hours when necessary. Guaifenesin extended release 500 mg p.o. twice daily Coordinate care with radiation oncology at [facility] (2) Elevated troponin: The patient will be admitted to telemetry for serial cardiac enzymes, serial EKG's, cardiac rhythm monitoring and a 2-D echocardiogram with Dopplers. Likely supply demand mismatch Trop has been trending down (3) Chest pain: Likely combination of metastatic disease No evidence of ACS Trops trending down EKG with no ST changes (4) Acute dyspnea: (5) Pneumonia: Plan Hopefully d/c in the next 24 hrs Total Time Total Time Spent Total Time Spent (In Minutes): 35 Discharge Plan Discharge Items Patient Disposition: Home - Self-Care Reason For Visit: MET BREAST CA TO LUNG, PNEUMONIA Discharge Diagnosis: Pulmonary metastatic disease Condition on Discharge: Fair Activity: Resume your previous activity Non-emergency contact: Primary Care Provider, Oncologist and Customs Inspector Call non-emergency contact if: you have any medication questions Follow-up/Referrals: Osbaldo Garnica MD [Primary Care Provider] - 04/18/22 11:20 am Diet: Regular Addtl Attending Provider Instructions: please make appointment to follow up with your oncologist Pending Studies at Discharge: No Stand-Alone Forms: [employer], Smoking Cessation Medications and DC Order Prescriptions: New levofloxacin 500 mg tablet 500 mg PO DAILY 3 Days Qty: 3 0RF Continued levetiracetam [Keppra] 500 mg Tablet 0 mg PO BID Rx Instructions: PT UNSURE OF STRENGTH, UNABLE TO VERIFY dexamethasone 2 mg Tablet 0 mg PO DIRECTED Rx Instructions: UNABLE TO VERIFY memantine 5 mg Tablet 0 mg PO BID Rx Instructions: PT UNSURE OF STRENGTH, TAKES 1/2 TAB BID. UNABLE TO VERIFY Multiple Suppliments 1 dose PO DAILY Rx Instructions: PER PT "TAKE MULTIPLE SUPPLIMENTS & VITAMINS DAILY". Discharge Orders: Discharge Order (Routine); Ordered 04/06/22 Ordered By: Gabriel Vyas Admission Data Admit Date/Time: 04/05/22 03:40 Attending Provider: Gabriel Vyas Admit Provider: Gilberto Nowak Primary Care Provider: Osbaldo Garnica Other Providers: Gilberto Nowak Other Interventions: Discharge Summary Assessment (RN) Last Done: 04/06/22 12:55 Coding Level of Care Code D/C DAY MANAGEMENT >30 MINS Diagnoses Breast cancer metastasized to lung C50.919; C78.00 Elevated troponin R77.8 Chest pain R07.9 Acute dyspnea R06.00 Pneumonia J18.9 Time Spent (min) 35
== END 2022-04-06 14:50 | disposition home or self-care (01) ==
LOC: ED 23:39 → SUATTDRO 04-05 03:40 → 2E 04-05 03:40 → INTOOBSV 04-05 03:40 → 2E 04-05 04:19

== ENCOUNTER 2022-05-15 18:33 | Inpatient (IN) ==
--- NOTE | 2022-05-15 19:33 | Emergency Department Note ---
Impression & Plan Acute respiratory failure with hypoxia, Breast cancer metastasized to lung, Elevated troponin, Acute dyspnea ED Provider Note NAME: OLIVER WALTERS AGE: 46 SEX: F : 1975 ARRIVES VIA: Walk-In INFORMANT: Patient, ED PROVIDER(S): Edy Hercules MD Chief Complaint: Shortness of breath HPI: Patient presents due to concern for shortness of breath which she states is exertional and has been worsening over the last 2 weeks. Patient states that she tried to ameliorate her symptoms by resting as well as increasing her hydration and nutrition status. The patient does have a known history of breast cancer with metastatic disease to lung and brain. Patient was admitted in March for similar symptoms. Patient has had cough that is nonproductive. No known history of PE or DVT. The patient denies any unilateral calf swelling or pain. No recent surgeries or procedures. Patient denies any fevers or chills. Patient states she is compliant her medications. The patient does still take 2 mg of dexamethasone daily. Patient denies any nausea or vomiting. ROS: See HPI for pertinent positives and negatives. A total of 10 systems were reviewed and otherwise negative. Past medical history: See below Surgical history: See below Social history: See below Physical Exam: GENERAL: Increased work of breathing, moderate distress, nasal cannula in place. EYE EXAM: Normal conjunctiva. PERRL, no anisocoria and EOM's grossly intact w/o pain. NECK: Supple, no nuchal rigidity, no adenopathy, non-tender. No signs of meningismus. FROM of the neck with good chin to chest and neck extension. No stridor. LUNGS: Coarse sounds throughout. Tachypnea and increased work of breathing noted. HEART: Tachycardic and regular, no MRG. ABDOMEN: Abdomen soft, non-tender, normo-active bowel sounds, no masses, no rebound or guarding. BACK: No CVA TTP. SKIN: No rashes and no bruising. UPPER EXTREMITIES: Upper extremities are grossly normal. LOWER EXTREMITIES: Grossly normal, no edema. NEURO EXAM: A&O x3, cranial nerves II-XII grossly intact, normal speech, moves all 4 extremities. Differential diagnoses: Reactive airway disease, pneumonia, pneumothorax, COPD, CHF, infections, cardiac ischemia, pulmonary embolism, musculoskeletal, gastrointestinal, as well as other pathologies. Course: Patient was seen and evaluated the bedside. Full history physical exam was performed. EKG interpreted by me Sinus tachycardia, rate 114, normal intervals and normal axis, T wave version anteriorly. Imaging Studies: See Below Cardiac monitoring: An order was placed for continuous cardiac monitoring. The monitor shows a rate of 122 with tachycardic and regular rhythm. MDM: Patient was seen due to concern for shortness of breath. The patient did have blood work completed along with blood cultures and was ordered empiric antibiotics viral testing initially was ordered some fluids due to concern for the patient's hypotension. The patient was also placed on BiPAP. Upon review of the patient's blood work patient had a mild white count of 11 with a normal hemoglobin. The patient's troponin is elevated to 25 but do not believe that this is secondary to the patient's work of breathing and likely volume overload. Patient declined the antibiotics I did state that would be important to consider this as the patient could have an underlying pneumonia. The patient CT angiography of the chest not show evidence of PE but did show worsening metastatic disease with small bilateral pleural effusions. No pneumothorax. I did speak with the inpatient service Dr. Echols and the patient was admitted to the medicine service. Critical Care: I have personally spent 52 minutes of critical care time in direct management of this patient. This includes bedside care, interpretation of diagnostic studies, and testing, discussion with consultants, patient, and family members, and other require inpatient management activities. This 52 minutes is in excess of all separately billable procedures. Past Med/Surg History Medical History Breast cancer Surgical History No pertinent past surgical history Social History Smoking Status: Never smoker Hx Alcohol Use: No Hx Substance Use: No Preferred Language: Occitan Communication Ability: Effective Health Information Assistant Required: No Beliefs That Will Affect Care: None marital status: Current Living Situation: Spouse and Family Feels Safe at Home: Yes Assistive Devices: None Allergies Allergies Allergy/AdvReac Type Severity Reaction Status Date / Time No Known Allergies Allergy Verified 05/15/22 22:00 Home Meds Home Medications Medication Instructions Recorded Confirmed dexamethasone 2 mg tablet 2 mg PO QAM 04/05/22 05/15/22 ascorbic acid (vitamin C) 1,000 mg 14 g PO QAM 05/15/22 05/15/22 tablet (Vitamin C) pabloa root extract 500 mg 1,000 mg PO HS 05/15/22 05/15/22 capsule melatonin 5 mg capsule 5 mg PO HS 05/15/22 05/15/22 mometasone-formoterol HFA 200 2 puff inhalation BID 05/15/22 05/15/22 mcg-5 mcg/actuation aerosol inhaler (Dulera) omega [id number]-fish oil 1,000 mg 1 cap PO TID 05/15/22 05/15/22 (120 mg-180 mg) capsule (Fish Oil) zinc gluconate 50 mg tablet 50 mg PO BID 05/15/22 05/15/22 Results & Data (ED) Vital Signs Vital Signs - 24 hr 05/15/22 19:28 05/15/22 20:02 05/15/22 20:02 Temperature 36.7 C Temperature Source Temporal Artery Scan Pulse Rate 123 H 111 H Pulse Rate [Right Finger] 111 H Respiratory Rate 24 33 H 33 H Respiratory Effort / Characteristics Non-Labored Spontaneous Spontaneous Labored Short of Breath Spontaneous Labored Short of Breath Respiratory Depth Normal Respiratory Pattern Tachypnea Blood Pressure 108/77 Blood Pressure [Right Arm] Blood Pressure Mean 87 Blood Pressure Mean [Right Arm] Blood Pressure Position Sitting Pulse Oximetry 83 L 96 96 Oxygen Delivery Method Room Air BiPAP Oxygen Flow Rate Fraction of Inspired Oxygen 40 40 Sepsis Recent Fever Within 48 Hours No Sepsis New/Unexplained Change in Mental Status N/A Sepsis Action Taken by Nursing No Action Required 05/15/22 22:01 05/15/22 21:30 Temperature Temperature Source Pulse Rate Pulse Rate [Right Finger] 128 H Respiratory Rate 32 H Respiratory Effort / Characteristics Respiratory Depth Respiratory Pattern Blood Pressure Blood Pressure [Right Arm] 124/81 Blood Pressure Mean Blood Pressure Mean [Right Arm] 95 Blood Pressure Position Pulse Oximetry 90 90 Oxygen Delivery Method Oxymask Oxymask Oxygen Flow Rate 6 6 Fraction of Inspired Oxygen Sepsis Recent Fever Within 48 Hours Sepsis New/Unexplained Change in Mental Status Sepsis Action Taken by Care Home Medications Current Medication List: was personally reviewed by me Laboratory Data Attestation: I reviewed the patient's lab results. Result diagrams: 05/16/22 04:32 05/16/22 04:32 Lab Results 05/15/22 05/15/22 05/15/22 Range/Units 20:20 20:20 20:20 WBC 11.17 H (4.8-10.8) K/ul RBC 5.19 (3.93-5.22) M/uL Hgb 15.5 (12.0-16.0) g/dl POC Hgb (12.0-16.0) g/dl Hct 45.4 H (34.1-44.9) % POC Hct (37-47) % MCV 87.5 (80.0-100.0) fL MCH 29.9 (25.0-34.0) pg MCHC 34.1 (32.0-36.0) g/dL RDW Std Deviation 48.6 H (36.4-46.3) fL RDW Coeff of Dorene 15.5 H (11.5-14.5) % Plt Count 327 (130-400) K/uL MPV 10.5 (9.4-12.3) fL Immature Gran % (Auto) 2.7 % Neut % (Auto) 85.8 % Lymph % (Auto) 5.5 % [place] % (Auto) 5.6 % Eos % (Auto) 0.0 % Baso % (Auto) 0.4 % Neut # (Auto) 9.60 H (1.4-6.5) K/uL Lymph # (Auto) 0.61 L (1.2-3.4) K/uL [place] # (Auto) 0.62 (0.24-0.82) K/uL Eos # (Auto) 0.00 (0-0.50) K/uL Baso # (Auto) 0.04 (0-0.2) K/uL Immature Gran # (Auto) 0.30 H (0.00-0.02) K/uL PT 11.0 (9.0-12.0) Seconds INR 1.0 (0.9-1.1) APTT 22.4 (21.0-31.0) Seconds PTT Ratio 0.8 POC Sodium (135-144) mmol/L Sodium 135 L (136-145) mmol/L POC Potassium (3.3-5.0) mmol/L Potassium 4.5 (3.5-5.1) mmol/L POC Chloride (101-112) mmol/L Chloride 97 L (98-107) mmol/L Carbon Dioxide 28 (21-32) mmol/L POC Total CO2 (24-31) mmol/L Anion Gap 10 (3-11) POC Anion Gap (16-25) mmol/L POC BUN (7-18) mg/dl BUN 15 (6-23) mg/dl Creatinine 0.53 L (0.6-1.2) mg/dl POC Creatinine (0.6-1.3) mg/dl Est Cr Clr Drug Dosing Not Reportable Est GFR ( Amer) 133.8 ml/min Est GFR (Non-Af Amer) 115.5 ml/min BUN/Creatinine Ratio 28.3 H (10-20) Glucose 112 H (70-99(Fasting)) mg/dl POC Glucose (other) (70-99) mg/dl Calcium 9.1 (8.5-10.1) mg/dl POC Ioniz Calcium Dinorah (1.12-1.32) mmol/l Magnesium 2.0 (1.7-2.4) mg/dl Total Bilirubin 0.2 (0.2-1.0) mg/dl AST 71 H (13-39) U/L ALT 55 H (7-52) U/L Alkaline Phosphatase 147 H (34-104) U/L Troponin I High Sens 225.2 H* (0-14) pg/ml C-Reactive Protein (0-0.5) mg/dl Total Protein 6.4 (6.0-8.3) gm/dl Albumin 3.5 (3.4-5.0) gm/dl Globulin 2.9 (2.5-4.0) gm/dl Albumin/Globulin Ratio 1.2 (0.9-2) Procalcitonin (0-0.5) ng/ml Nasal Screen MRSA (PCR) (Negative) SARS-CoV-2 (PCR) (Negative) Influenza Type A (PCR) (Neg) Influenza Type B (PCR) (Neg) RSV (RT-PCR) (Neg) 05/15/22 05/15/22 05/15/22 Range/Units 20:20 20:20 20:26 WBC (4.8-10.8) K/ul RBC (3.93-5.22) M/uL Hgb (12.0-16.0) g/dl POC Hgb 15.0 (12.0-16.0) g/dl Hct (34.1-44.9) % POC Hct 44 (37-47) % MCV (80.0-100.0) fL MCH (25.0-34.0) pg MCHC (32.0-36.0) g/dL RDW Std Deviation (36.4-46.3) fL RDW Coeff of Dorene (11.5-14.5) % Plt Count (130-400) K/uL MPV (9.4-12.3) fL Immature Gran % (Auto) % Neut % (Auto) % Lymph % (Auto) % [place] % (Auto) % Eos % (Auto) % Baso % (Auto) % Neut # (Auto) (1.4-6.5) K/uL Lymph # (Auto) (1.2-3.4) K/uL [place] # (Auto) (0.24-0.82) K/uL Eos # (Auto) (0-0.50) K/uL Baso # (Auto) (0-0.2) K/uL Immature Gran # (Auto) (0.00-0.02) K/uL PT (9.0-12.0) Seconds INR (0.9-1.1) APTT (21.0-31.0) Seconds PTT Ratio POC Sodium 134 L (135-144) mmol/L Sodium (136-145) mmol/L POC Potassium 4.5 (3.3-5.0) mmol/L Potassium (3.5-5.1) mmol/L POC Chloride 97 L (101-112) mmol/L Chloride (98-107) mmol/L Carbon Dioxide (21-32) mmol/L POC Total CO2 27 (24-31) mmol/L Anion Gap (3-11) POC Anion Gap 15.0 L (16-25) mmol/L POC BUN 13 (7-18) mg/dl BUN (6-23) mg/dl Creatinine (0.6-1.2) mg/dl POC Creatinine 0.5 L (0.6-1.3) mg/dl Est Cr Clr Drug Dosing Est GFR ( Amer) ml/min Est GFR (Non-Af Amer) ml/min BUN/Creatinine Ratio (10-20) Glucose (70-99(Fasting)) mg/dl POC Glucose (other) 114 H (70-99) mg/dl Calcium (8.5-10.1) mg/dl POC Ioniz Calcium Dinorah 1.10 L (1.12-1.32) mmol/l Magnesium (1.7-2.4) mg/dl Total Bilirubin (0.2-1.0) mg/dl AST (13-39) U/L ALT (7-52) U/L Alkaline Phosphatase (34-104) U/L Troponin I High Sens (0-14) pg/ml C-Reactive Protein 4.74 H (0-0.5) mg/dl Total Protein (6.0-8.3) gm/dl Albumin (3.4-5.0) gm/dl Globulin (2.5-4.0) gm/dl Albumin/Globulin Ratio (0.9-2) Procalcitonin 0.34 (0-0.5) ng/ml Nasal Screen MRSA (PCR) (Negative) SARS-CoV-2 (PCR) (Negative) Influenza Type A (PCR) (Neg) Influenza Type B (PCR) (Neg) RSV (RT-PCR) (Neg) 05/15/22 05/15/22 Range/Units 21:53 21:53 WBC (4.8-10.8) K/ul RBC (3.93-5.22) M/uL Hgb (12.0-16.0) g/dl POC Hgb (12.0-16.0) g/dl Hct (34.1-44.9) % POC Hct (37-47) % MCV (80.0-100.0) fL MCH (25.0-34.0) pg MCHC (32.0-36.0) g/dL RDW Std Deviation (36.4-46.3) fL RDW Coeff of Dorene (11.5-14.5) % Plt Count (130-400) K/uL MPV (9.4-12.3) fL Immature Gran % (Auto) % Neut % (Auto) % Lymph % (Auto) % [place] % (Auto) % Eos % (Auto) % Baso % (Auto) % Neut # (Auto) (1.4-6.5) K/uL Lymph # (Auto) (1.2-3.4) K/uL [place] # (Auto) (0.24-0.82) K/uL Eos # (Auto) (0-0.50) K/uL Baso # (Auto) (0-0.2) K/uL Immature Gran # (Auto) (0.00-0.02) K/uL PT (9.0-12.0) Seconds INR (0.9-1.1) APTT (21.0-31.0) Seconds PTT Ratio POC Sodium (135-144) mmol/L Sodium (136-145) mmol/L POC Potassium (3.3-5.0) mmol/L Potassium (3.5-5.1) mmol/L POC Chloride (101-112) mmol/L Chloride (98-107) mmol/L Carbon Dioxide (21-32) mmol/L POC Total CO2 (24-31) mmol/L Anion Gap (3-11) POC Anion Gap (16-25) mmol/L POC BUN (7-18) mg/dl BUN (6-23) mg/dl Creatinine (0.6-1.2) mg/dl POC Creatinine (0.6-1.3) mg/dl Est Cr Clr Drug Dosing Est GFR ( Amer) ml/min Est GFR (Non-Af Amer) ml/min BUN/Creatinine Ratio (10-20) Glucose (70-99(Fasting)) mg/dl POC Glucose (other) (70-99) mg/dl Calcium (8.5-10.1) mg/dl POC Ioniz Calcium Dinorah (1.12-1.32) mmol/l Magnesium (1.7-2.4) mg/dl Total Bilirubin (0.2-1.0) mg/dl AST (13-39) U/L ALT (7-52) U/L Alkaline Phosphatase (34-104) U/L Troponin I High Sens (0-14) pg/ml C-Reactive Protein (0-0.5) mg/dl Total Protein (6.0-8.3) gm/dl Albumin (3.4-5.0) gm/dl Globulin (2.5-4.0) gm/dl Albumin/Globulin Ratio (0.9-2) Procalcitonin (0-0.5) ng/ml Nasal Screen MRSA (PCR) Negative (Negative) SARS-CoV-2 (PCR) NEGATIVE (Negative) Influenza Type A (PCR) Negative (Neg) Influenza Type B (PCR) Negative (Neg) RSV (RT-PCR) Negative (Neg) Administered Medications Enoxaparin Sodium (Enoxaparin Inj 40 Mg/0.4 Ml Syr) 40 mg SQ PM ALFONSO Stop: 06/15/22 00:51 Last Admin: 05/16/22 01:52 Dose: Not Given Documented By: LIBORIO Fluticasone/Vilanterol (Fluticasone/Vilanterol 100/25mcg 14 Puffs/Inhaler) 1 puffs INH DAILY ALFONSO Stop: 06/15/22 08:59 Last Admin: 05/16/22 08:25 Dose: 1 puffs Documented By: LEONARD Piperacillin Sod/Tazobactam (Sod 4.5 gm/ Dextrose) 120 mls @ 30 mls/hr IV Q8H ALFONSO; Protocol Stop: 05/23/22 07:59 Last Admin: 05/16/22 15:48 Dose: 30 mls/hr Documented By: Infusion: 05/16/22 12:33 Dose: 0 mls/hr Documented By: Admin: 05/16/22 08:29 Dose: 30 mls/hr Documented By: LEONARD Dexamethasone 4 mg/ Syringe 1 mls @ 1 mls/min IV Q24H ALFONSO Stop: 06/15/22 00:51 Last Admin: 05/16/22 08:26 Dose: 1 mls/min Documented By: LEONARD Discontinued Medications Albuterol (Albut/Ipratrop 3mg/0.5mg Neb 3 Ml Vial) 3 ml NEB NOW STA; Protocol Stop: 05/15/22 19:50 Last Admin: 05/15/22 19:57 Dose: 3 ml Documented By: LOC Dexamethasone Sodium Phosphate (DexamethasonePf 10 Mg/Ml Vial) 10 mg IV NOW ONE Stop: 05/15/22 20:42 Last Admin: 05/15/22 21:19 Dose: 10 mg Documented By: LIBORIO Furosemide (Furosemide Inj 20 Mg/2 Ml Vial) 20 mg IV ONE ONE Stop: 05/15/22 22:51 Last Admin: 05/15/22 23:10 Dose: 20 mg Documented By: LIBORIO Sodium Chloride (Nss 1000ml) 1,000 mls @ 999 mls/hr IV .Q1H1M ONE Stop: 05/15/22 20:49 Last Infusion: 05/15/22 21:35 Dose: 0 mls/hr Documented By: Admin: 05/15/22 20:17 Dose: 999 mls/hr Documented By: LIBORIO Piperacillin Sod/Tazobactam Sod (Zosyn) 4.5 gm in 120 mls @ 240 mls/hr IV NOW ONE Stop: 05/15/22 20:18 Last Admin: 05/15/22 20:57 Dose: Not Given Documented By: LIBORIO Piperacillin Sod/Tazobactam Sod (Zosyn) 4.5 gm in 120 mls @ 240 mls/hr IV NOW ONE Stop: 05/16/22 00:59 Last Infusion: 05/16/22 02:32 Dose: 0 mls/hr Documented By: Admin: 05/16/22 01:51 Dose: 240 mls/hr Documented By: LIBORIO Ioversol (Optiray 320 500ml) 113 ml IV ONCE ONE Stop: 05/15/22 21:16 Last Admin: 05/15/22 21:16 Dose: 113 ml Documented By: GERRY Lorazepam (Lorazepam 1 Mg/1 Ml Syr) 0.25 mg IV NOW STA; Protocol Stop: 05/15/22 20:09 Last Admin: 05/15/22 20:18 Dose: 0.25 mg Documented By: LIBORIO Miscellaneous (Patient's Height &/Or Weight Needed) 1 each N/A Q2H ALFONSO Stop: 06/15/22 00:29 Last Admin: 05/16/22 07:12 Dose: Not Given Documented By: LEONARD Piperacillin Sod/Tazobactam Sod (Piperacillin/Tazobactam 4.5 Gm/120ml D5w) Confirm Administered Dose 4.5 gm IV .STK-MED ONE Stop: 05/16/22 08:23 Last Admin: 05/16/22 08:29 Dose: Not Given Documented By: LEONARD Imaging Data Radiologist's Impression: Chest CTA 05/15/22 19:35 CT ANGIOGRAPHY OF THE CHEST, PULMONARY EMBOLUS PROTOCOL CLINICAL HISTORY: Dyspnea. Metastatic breast cancer. COMPARISON STUDY: Chest CT April 05, 2022 and chest radiograph May 15, 2022. TECHNIQUE: Following IV administration of 113 mL of Optiray, helical axial images of the chest were obtained utilizing the pulmonary embolus protocol. Maximal intensity projections and sagittal and coronal reformats were viewed on an independent 3D workstation. IV contrast was administered without complication. Automated exposure control was utilized for the study. A dose lowering technique was utilized adhering to the principles of ALARA. CT DOSE: 375.55 mGy.cm FINDINGS: No pulmonary emboli are identified. The size of the heart is normal. There is no pericardial effusion. Small bilateral pleural effusions have increased since CT of April 05, 2022. There is no pneumothorax. Extensive pulmonary metastatic disease has significantly progressed since CT of April 05, 2022. A 6.6 cm central left upper lobe mass is similar to prior exam. However, the remainder of the pulmonary nodules and masses have significantly progressed. Interlobular septal thickening is noted consistent with lymphangitic spread of tumor. The conglomerate masses result in multifocal airway narrowing as well as narrowing of multiple pulmonary arteries. Skeletal metastatic disease has progressed since prior exam. There is extensive destruction of the sternum and manubrium. Slight loss of height of the superior endplates of T2 and T3 is noted. Thoracic lymphadenopathy is similar to prior exam. Right breast masses are partially imaged on this exam. Hepatic metastatic disease has significantly progressed. Index right hepatic lobe lesion measures 4.9 cm. It previously measured 4 cm. Possible subcentimeter lesion within the spleen is noted. IMPRESSION: 1. No pulmonary emboli identified. 2. Significant progression of extensive metastatic disease since CT of April 05, 2022, as detailed above. 3. Small bilateral pleural effusions, increased in size since prior study. ACT 112: Negative or not required by law. Electronically signed by: Shakir Tavarez M.D. 05/16/2022 10:57 AM Chest CTA 05/15/22 19:35 CT ANGIOGRAPHY OF THE CHEST, PULMONARY EMBOLUS PROTOCOL CLINICAL HISTORY: Dyspnea. Metastatic breast cancer. COMPARISON STUDY: Chest CT April 05, 2022 and chest radiograph May 15, 2022. TECHNIQUE: Following IV administration of 113 mL of Optiray, helical axial images of the chest were obtained utilizing the pulmonary embolus protocol. Maximal intensity projections and sagittal and coronal reformats were viewed on an independent 3D workstation. IV contrast was administered without complication. Automated exposure control was utilized for the study. A dose lowering technique was utilized adhering to the principles of ALARA. CT DOSE: 375.55 mGy.cm FINDINGS: No pulmonary emboli are identified. The size of the heart is normal. There is no pericardial effusion. Small bilateral pleural effusions have increased since CT of April 05, 2022. There is no pneumothorax. Extensive pulmonary metastatic disease has significantly progressed since CT of April 05, 2022. A 6.6 cm central left upper lobe mass is similar to prior exam. However, the remainder of the pulmonary nodules and masses have significantly progressed. Interlobular septal thickening is noted consistent with lymphangitic spread of tumor. The conglomerate masses result in multifocal airway narrowing as well as narrowing of multiple pulmonary arteries. Skeletal metastatic disease has progressed since prior exam. There is extensive destruction of the sternum and manubrium. Slight loss of height of the superior endplates of T2 and T3 is noted. Thoracic lymphadenopathy is similar to prior exam. Right breast masses are partially imaged on this exam. Hepatic metastatic disease has significantly progressed. Index right hepatic lobe lesion measures 4.9 cm. It previously measured 4 cm. Possible subcentimeter lesion within the spleen is noted. IMPRESSION: 1. No pulmonary emboli identified. 2. Significant progression of extensive metastatic disease since CT of April 05, 2022, as detailed above. 3. Small bilateral pleural effusions, increased in size since prior study. ACT 112: Negative or not required by law. Electronically signed by: Shakir Tavarez M.D. 05/16/2022 10:57 AM Chest X-Ray 05/15/22 19:35 XR chest 1V portable HISTORY: 46 years-old Female Dyspnea acute shortness of breath COMPARISON: Chest radiograph and CTA chest 04/05/2022 TECHNIQUE: AP view of the chest FINDINGS: Cardiomediastinal and hilar silhouettes are unchanged. Left perihilar mass redemonstrated. 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 Right greater than left pleural effusions have increased in size from prior. Progressive right lung base consolidation. Degenerative changes of the shoulders and spine. IMPRESSION: 1. 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 2. Right greater than left pleural effusions with progressive right basilar consolidation. ACT 112: Negative or not required by law. The above report was generated using voice recognition software. It may contain grammatical, syntax or spelling errors. Electronically signed by: Peña Powers M.D. 05/15/2022 8:38 PM Discharge Plan Visit Data Chief Complaint: Shortness of Breath/Dyspnea Stated Complaint: TROUBLE BREATHING,SOB,CHEST PAIN ED Provider: Edy Hercules Discharge Problem: Acute respiratory failure with hypoxia, Breast cancer metastasized to lung, Elevated troponin, Acute dyspnea Patient Disposition: Admitted As Inpatient Discharge Instructions Interventions: ED Discharge Assessment Last Done: 05/16/22 00:53
[2022-05-15] MEDS ORDERED: SODIUM CHLORIDE 0.9% 1000ML 1,000 ML IV ONE (19:49)
[2022-05-15] MEDS ORDERED: ALBUT/IPRATROP 3MG/0.5MG NEB 3 ML VIAL NEB STA (19:49)
[2022-05-15] MEDS ORDERED: PIPERACILLIN/TAZOBACTAM 4.5 GM/120 ML BAG IV ONE (19:49)
[2022-05-15] MEDS ORDERED: LORazepam 2 MG/1 ML VIAL IV STA (20:08)
[2022-05-15 20:38] LABS: iSTAT Creatinine 0.5 mg/dl (0.6-1.3); iSTAT Ionized Calcium 1.1 mmol/l (1.12-1.32); iSTAT Potassium 4.5 mmol/L (3.3-5.0)
--- NOTE | 2022-05-15 20:39 | XRay Report ---
XR chest 1V portable HISTORY: 46 years-old Female Dyspnea acute shortness of breath COMPARISON: Chest radiograph and CTA chest 04/05/2022 TECHNIQUE: AP view of the chest FINDINGS: Cardiomediastinal and hilar silhouettes are unchanged. Left perihilar mass redemonstrated. 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 Right greater william n left pleural effusions have increased in size from prior. Progressive right lung base consolidation . Degenerative changes of the shoulders and spine. IMPRESSION: 1. 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 2. Right greater than left pleural effusions with progressive right basilar consolidation. ACT 112: Negative or not required by law. The above report was generated using voice recognition software. It may contain grammatical, syntax o r spelling errors. Electronically signed by: Peña Powers M.D. 05/15/2022 8:38 PM
[2022-05-15] MEDS ORDERED: dexAMETHasone**PF** 10 MG/ML VIAL IV ONE (20:41)
[2022-05-15 20:43] LABS: Basophils # (auto) 0.04 K/uL (0-0.2); Basophils % (auto) 0.4 %; Hematocrit (blood only) 45.4 % (34.1-44.9); Hemoglobin 15.5 g/dl (12.0-16.0); Immature Granulocytes % (auto) 2.7 %; Lymphocytes # (auto) 0.61 K/uL (1.2-3.4); Lymphocytes % (auto) 5.5 %; Mean Corpuscular Hemoglobin 29.9 pg (25.0-34.0); Mean Corpuscular Hgb Conc 34.1 g/dL (32.0-36.0); Mean Corpuscular Volume 87.5 fL (80.0-100.0); Mean Platelet Volume 10.5 fL (9.4-12.3); Monocytes # (auto) 0.62 K/uL (0.24-0.82); Monocytes % (auto) 5.6 %; Neutrophils % (auto) 85.8 %; Platelet Count 327 K/uL (130-400); RDW Coefficient of Variation 15.5 % (11.5-14.5); RDW Standard Deviation 48.6 fL (36.4-46.3); Red Blood Count 5.19 M/uL (3.93-5.22); White Blood Count 11.17 K/ul (4.8-10.8)
[2022-05-15 20:58] LABS: Partial Thromboplastin Ratio 0.8; Partial Thromboplastin Time 22.4 Seconds (21.0-31.0)
[2022-05-15 21:07] LABS: Alanine Aminotransferase 55 U/L (7-52); Albumin Globulin Ratio 1.2 (0.9-2); Albumin Level 3.5 gm/dl (3.4-5.0); Alkaline Phosphatase 147 U/L (34-104); Anion Gap 10 (3-11); Aspartate Aminotransferase 71 U/L (13-39); BUN Creatinine Ratio 28.3 (10-20); Bilirubin,Total 0.2 mg/dl (0.2-1.0); Blood Urea Nitrogen 15 mg/dl (6-23); Calcium 9.1 mg/dl (8.5-10.1); Carbon Dioxide 28 mmol/L (21-32); Chloride 97 mmol/L (98-107); Est GFR (African American) 133.8 ml/min; Est GFR (Non-African American) 115.5 ml/min; Globulin 2.9 gm/dl (2.5-4.0); Glucose 112 mg/dl (70-99(Fasting)); Potassium 4.5 mmol/L (3.5-5.1); Sodium 135 mmol/L (136-145); Total Protein 6.4 gm/dl (6.0-8.3)
[2022-05-15] MEDS ORDERED: OPTIRAY 320 500ml IV ONE (21:15)
[2022-05-15 21:16] LABS: Troponin I High Sensitivity 225.2 pg/ml (0-14)
--- NOTE | 2022-05-15 21:55 | History & Physical Report ---
Date of Service May 15, 2022 Assessment & Plan (1) Acute dyspnea: Plan: 46 yo female PMHx breast cancer with mets on radiation therapy presents for shortness of breath. #Acute hypoxic respiratory failure -2 weeks worsening shortness of breath. On arrival required BiPaP but quickly weened down to NC. Did meet SIRS criteria on arrival. Blood cx pending. 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 WBC mildly elevated. -trial IV lasix 20mg -IV zosyn in ED, cont. MRSA nares neg. -IV dexamethasone 10mg x1 in ED. Cont. with stress dosing IV dexamethasone 4mg daily. On 2mg po at home. -cont. home duoneb, breo ellipta -crp, procal pending #Pneumonia -as above #Metastatic breast cancer -h/o progressively worsening mets s/p radiation therapy. Follows with [facility], further treatment deferred at last appointment. -has not had home keppra and memantine for seizure ppx (secondary to brain mets) in the last 2 weeks. Will cont. holding for now given no recent seizures. Consider restarting if concern for seizure. Elevated troponin -suspect due to demand ischemia -admitted to PCU -trend trops DVT ppx: lovenox FEN/GI: regular Code Status: full Dispo: PCU. Poor medical terminologist prognosis. Per pt, a couple months ago was given a 6 month prognosis. Would highly consider palliative measures going forward. (2) Breast cancer metastasized to lung: (3) Chest pain: (4) Elevated troponin: (5) Pneumonia: History of Present Illness Chief Complaint: shortness of breath Primary Care Provider: Osbaldo Garnica MD 46 yo female PMHx breast cancer with mets s/p radiation therapy presents for shortness of breath. Symptoms progressively worsening over the past 2 weeks. Associated mild cough with subsequent chest pain. Denies fevers, chills, congestion, sore throat, abd pain, N/V/D, dysuria. Follows with oncology at [facility]. Last seen a couple of months ago s/p radiation therapy. Decision was made to not undergo chemo or alternative treatment for cancer due to limited life expectancy. Of note, on seizure ppx with keppra and memantine both of which she has not had over the past couple of weeks due to not having meds, denies seizures during this time. Upon presenting to the ED, did require bipap but weened to nasal cannula. Allergies Allergy/AdvReac Type Severity Reaction Status Date / Time No Known Allergies Allergy Verified 05/15/22 22:00 Home Medications Medication Instructions Recorded Confirmed Type dexamethasone 2 mg tablet 2 mg PO QAM 04/05/22 05/15/22 History ascorbic acid (vitamin C) 1,000 mg 14 g PO QAM 05/15/22 05/15/22 History tablet (Vitamin C) ashwagandha root extract 500 mg 1,000 mg PO HS 05/15/22 05/15/22 History capsule melatonin 5 mg capsule 5 mg PO HS 05/15/22 05/15/22 History mometasone-formoterol HFA 200 2 puff inhalation BID 05/15/22 05/15/22 History mcg-5 mcg/actuation aerosol inhaler (Dulera) omega 3-pdz-bje-fish oil 1,000 mg 1 cap PO TID 05/15/22 05/15/22 History (120 mg-180 mg) capsule (Fish Oil) zinc gluconate 50 mg tablet 50 mg PO BID 05/15/22 05/15/22 History Past Med/Surg History Medical History Breast cancer Surgical History No pertinent past surgical history Social History Smoking Status: Never smoker Hx Alcohol Use: No Hx Substance Use: No Preferred Language: Tunisian Communication Ability: Effective Manager Financial Planning Required: No Beliefs That Will Affect Care: None marital status: Current Living Situation: Spouse and Family Feels Safe at Home: Yes Assistive Devices: None Review of Systems Review of Systems: All systems reviewed & are unremarkable except as noted in HPI & below Physical Exam Physical Exam: Constitutional:in no acute distress, pleasant. Vitals as above. HEENT: No scleral injection or discharge.Moist mucous membranes. Neck: Supple without lymphadenopathy or thyromegaly. Trachea midline. No JVD. Lungs: Diminished bibasilar lung sounds with +rales/wheezing on right, mildly tachypneic with visible retractions Cardiac: RRR.No murmurs.2+ distal peripheral pulses. Trace bilateral LE pitting edema. Abdomen: Bowel sounds present. Soft, nontender, and nondistended.No guarding. No hepatosplenomegaly. MSK: No cyanosis or clubbing. Extremities motor strength 5/5. Skin: No rashes, warm, dry. Neurologic: Grossly intact cranial nerves Results & Data Results & Data ([facility]) Vital Signs (Past 12 Hours) Vital Signs Temp Pulse Pulse Resp BP Pulse Ox O2 Del Method 05/15/22 20:02 111 H 33 H 96 05/15/22 20:02 111 H 33 H 96 BiPAP 05/15/22 19:28 36.7 C 123 H 24 108/77 83 L Room Air FiO2 05/15/22 20:02 40 05/15/22 20:02 40 05/15/22 19:28 Laboratory Results Laboratory Results WBC 11.17 K/ul (4.8-10.8) H 05/15/22 20:20 RBC 5.19 M/uL (3.93-5.22) 05/15/22 20:20 Hgb 15.5 g/dl (12.0-16.0) 05/15/22 20:20 POC Hgb 15.0 g/dl (12.0-16.0) 05/15/22 20:26 Hct 45.4 % (34.1-44.9) H 05/15/22 20:20 POC Hct 44 % (37-47) 05/15/22 20: MCV 87.5 fL (80.0-100.0) 05/15/22 20:20 MCH 29.9 pg (25.0-34.0) 05/15/22 20:20 MCHC 34.1 g/dL (32.0-36.0) 05/15/22 20:20 RDW Std Deviation 48.6 fL (36.4-46.3) H 05/15/22 20:20 RDW Coeff of Dorene 15.5 % (11.5-14.5) H 05/15/22 20:20 Plt Count 327 K/uL (130-400) 05/15/22 20:20 MPV 10.5 fL (9.4-12.3) 05/15/22 20:20 Immature Gran % (Auto) 2.7 % 05/15/22 20:20 Neut % (Auto) 85.8 % 05/15/22 20:20 Lymph % (Auto) 5.5 % 05/15/22 20:20 Smith % (Auto) 5.6 % 05/15/22 20:20 Eos % (Auto) 0.0 % 05/15/22 20:20 Baso % (Auto) 0.4 % 05/15/22 20:20 Neut # (Auto) 9.60 K/uL (1.4-6.5) H 05/15/22 20:20 Lymph # (Auto) 0.61 K/uL (1.2-3.4) L 05/15/22 20:20 Smith # (Auto) 0.62 K/uL (0.24-0.82) 05/15/22 20:20 Eos # (Auto) 0.00 K/uL (0-0.50) 05/15/22 20:20 Baso # (Auto) 0.04 K/uL (0-0.2) 05/15/22 20:20 Immature Gran # (Auto) 0.30 K/uL (0.00-0.02) H 05/15/22 20:20 PT 11.0 Seconds (9.0-12.0) 05/15/22 20:20 INR 1.0 (0.9-1.1) 05/15/22 20:20 APTT 22.4 Seconds (21.0-31.0) 05/15/22 20:20 PTT Ratio 0.8 05/15/22 20:20 POC Sodium 134 mmol/L (135-144) L 05/15/22 20:26 Sodium 135 mmol/L (136-145) L 05/15/22 20:20 POC Potassium 4.5 mmol/L (3.3-5.0) 05/15/22 20:26 Potassium 4.5 mmol/L (3.5-5.1) 05/15/22 20:20 POC Chloride 97 mmol/L (101-112) L 05/15/22 20:26 Chloride 97 mmol/L (98-107) L 05/15/22 20:20 Carbon Dioxide 28 mmol/L (21-32) 05/15/22 20:20 POC Total CO2 27 mmol/L (24-31) 05/15/22 20:26 Anion Gap 10 (3-11) 05/15/22 20:20 POC Anion Gap 15.0 mmol/L (16-25) L 05/15/22 20:26 POC BUN 13 mg/dl (7-18) 05/15/22 20: BUN 15 mg/dl (6-23) 05/15/22 20:20 Creatinine 0.53 mg/dl (0.6-1.2) L 05/15/22 20:20 POC Creatinine 0.5 mg/dl (0.6-1.3) L 05/15/22 20: Est Cr Clr Drug Dosing Not Reportable 05/15/22 20:20 Est GFR ( Amer) 133.8 ml/min 05/15/22 20:20 Est GFR (Non-Af Amer) 115.5 ml/min 05/15/22 20:20 BUN/Creatinine Ratio 28.3 (10-20) H 05/15/22 20:20 Glucose 112 mg/dl (70-99(Fasting)) H 05/15/22 20:20 POC Glucose (other) 114 mg/dl (70-99) H 05/15/22 20:26 Calcium 9.1 mg/dl (8.5-10.1) 05/15/22 20:20 POC Ioniz Calcium Dinorah 1.10 mmol/l (1.12-1.32) L 05/15/22 20: Magnesium 2.0 mg/dl (1.7-2.4) 05/15/22 20:20 Total Bilirubin 0.2 mg/dl (0.2-1.0) 05/15/22 20:20 AST 71 U/L (13-39) H 05/15/22 20:20 ALT 55 U/L (7-52) H 05/15/22 20:20 Alkaline Phosphatase 147 U/L (34-104) H 05/15/22 20:20 Troponin I High Sens 225.2 pg/ml (0-14) H* 05/15/22 20:20 Total Protein 6.4 gm/dl (6.0-8.3) 05/15/22 20:20 Albumin 3.5 gm/dl (3.4-5.0) 05/15/22 20:20 Globulin 2.9 gm/dl (2.5-4.0) 05/15/22 20:20 Albumin/Globulin Ratio 1.2 (0.9-2) 05/15/22 20:20 Impressions Chest X-Ray 05/15/22 19:35 XR chest 1V portable HISTORY: 46 years-old Female Dyspnea acute shortness of breath COMPARISON: Chest radiograph and CTA chest 04/05/2022 TECHNIQUE: AP view of the chest FINDINGS: Cardiomediastinal and hilar silhouettes are unchanged. Left perihilar mass redemonstrated. 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 Right greater than left pleural effusions have increased in size from prior. Progressive right lung base consolidation. Degenerative changes of the shoulders and spine. IMPRESSION: 1. 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 2. Right greater than left pleural effusions with progressive right basilar consolidation. ACT 112: Negative or not required by law. The above report was generated using voice recognition software. It may contain grammatical, syntax or spelling errors. Electronically signed by: Peña Powers M.D. 05/15/2022 8:38 PM Supervising Physician Co-Signing Physician Notes Attending addendum: I have physically seen this patient, have supervised the medical residents activities, and agree with the H&P unless as otherwise noted. Assessment and Plan: Acute on chronic respiratory failure with hypoxia/worsening pulmonary metastatic disease/secondary bacterial pneumonia- Negative COVID, flu and RSV testing Placed on Zosyn 4.5 g IV every 8 hours Check MRSA swab to determine need for Vanco IV Dexamethasone 10 mg IV given in ED Placed on dexamethasone 4 mg IV daily, as modified stress testing for dexamethasone 10 mg orally at home Duonebs every 4 hours while awake and every 2 hours when necessary. Continue Breo Ellipta Guaifenesin extended release 12 mg p.o. twice daily Initially required BiPAP, and has been converted to nasal cannula with target pulse ox 92% Elevated troponin- Troponin to 225.2 with normal EKG The patient will be admitted to telemetry for serial cardiac enzymes, serial EKG's, cardiac rhythm monitoring Liver metastases/abnormal LFTs- Increased mets on CT Worsening prognosis with 7 cm perihilar mass, and increasing metastases to lung, liver and bone Resident Activity Tracking Resident Involvement: Resident Care Provided Care Provided: Adult Hospital Medicine
[2022-05-15] MEDS ORDERED: FUROSEMIDE INJ 20 MG/2 ML VIAL IV ONE (22:50)
[2022-05-15 23:02] LABS: Influenza A virus by PCR Negative (Neg); Influenza B virus by PCR Negative (Neg); RSV by PCR Negative (Neg); SARS CoV2 RNA(COVID-19) Ceph NEGATIVE (Negative)
[2022-05-16] MEDS ORDERED: Patient's HEIGHT &/or WEIGHT Needed SCH (00:30)
[2022-05-16] MEDS ORDERED: ONDANSETRON INJ 2 MG/ML 2 ML VIAL IV PRN (00:52)
[2022-05-16] MEDS ORDERED: ACETAMINOPHEN 325 MG TAB PO PRN (00:52)
[2022-05-16] MEDS ORDERED: ALBUTEROL HFA 8 GM INHALER INH SCH (00:52)
[2022-05-16] MEDS ORDERED: POLYETHYLENE (MIRALAX) 17 GM PACK PO PRN (00:52)
[2022-05-16] MEDS: PIPERACILLIN/TAZOBACTAM 4.5 GM/120 ML BAG IV ONE ×2 (01:09→01:51)
[2022-05-16] MEDS ORDERED: ALBUTEROL HFA 8 GM INHALER INH PRN (01:45)
[2022-05-16] MEDS: ENOXAPARIN INJ 40 MG/0.4 ML SYR SQ SCH ×2 (01:52→21:10)
[2022-05-16] MEDS ORDERED: Nursing to Pharmacy Communication SCH (04:00)
[2022-05-16 04:57] LABS: Hematocrit (blood only) 40.6 % (34.1-44.9); Hemoglobin 13.8 g/dl (12.0-16.0); Mean Corpuscular Hemoglobin 29.4 pg (25.0-34.0); Mean Corpuscular Volume 86.4 fL (80.0-100.0); Mean Platelet Volume 10.6 fL (9.4-12.3); Platelet Count 277 K/uL (130-400); RDW Coefficient of Variation 15.5 % (11.5-14.5); RDW Standard Deviation 47.8 fL (36.4-46.3); White Blood Count 9.82 K/ul (4.8-10.8)
[2022-05-16 05:21] LABS: Basophils # (auto) 0.04 K/uL (0-0.2); Basophils % (auto) 0.4 %; Immature Granulocytes # (auto) 0.18 K/uL (0.00-0.02); Immature Granulocytes % (auto) 1.8 %; Lymphocytes # (auto) 0.53 K/uL (1.2-3.4); Lymphocytes % (auto) 5.4 %; Monocytes # (auto) 0.21 K/uL (0.24-0.82); Monocytes % (auto) 2.1 %; Neutrophils # (auto) 8.86 K/uL (1.4-6.5); Neutrophils % (auto) 90.3 %
[2022-05-16 05:26] LABS: Albumin Globulin Ratio 1.2 (0.9-2); Albumin Level 3.3 gm/dl (3.4-5.0); BUN Creatinine Ratio 24.6 (10-20); Bilirubin,Total 0.3 mg/dl (0.2-1.0); C Reactive Protein 4.3 mg/dl (0-0.5); Calcium 8.9 mg/dl (8.5-10.1); Creatinine Clr Calc Pharmacy 101.6 ml/min; Est GFR (African American) 127.8 ml/min; Est GFR (Non-African American) 110.3 ml/min; Globulin 2.7 gm/dl (2.5-4.0); Potassium 4.6 mmol/L (3.5-5.1)
[2022-05-16] MEDS ORDERED: PIPERACILLIN/TAZOBACTAM 4.5 GM/120ML D5W IV ONE (08:22)
[2022-05-16] MEDS: FLUTICASONE/VILANTEROL 100/25MCG 14 PUFFS/INHALER INH SCH (08:25)
[2022-05-16] MEDS: dexAMETHasone 4 MG in SYRINGE 0 ML IV SCH (08:26)
[2022-05-16] MEDS: PIPERACILLIN/TAZOBACTAM 4.5 GM in DEXTROSE 5% 100 ML IV SCH ×2 (08:29→15:48)
--- NOTE | 2022-05-16 10:59 | CT Scan Report ---
CT ANGIOGRAPHY OF THE CHEST, PULMONARY EMBOLUS PROTOCOL CLINICAL HISTORY: Dyspnea. Metastatic breast cancer. COMPARISON STUDY: Chest CT April 05, 2022 and chest radiograph May 15, 2022. TECHNIQUE: Following IV administration of 113 mL of Optiray, helical axial images of the chest were o btained utilizing the pulmonary embolus protocol. Maximal intensity projections and sagittal and cor onal reformats were viewed on an independent 3D workstation. IV contrast was administered without co mplication. Automated exposure control was utilized for the study. A dose lowering technique was ut ilized adhering to the principles of ALARA. CT DOSE: 375.55 mGy.cm FINDINGS: No pulmonary emboli are identified. The size of the heart is normal. There is no pericardi al effusion. Small bilateral pleural effusions have increased since CT of April 05, 2022. There is no pneumothorax. Extensive pulmonary metastatic disease has significantly progressed since CT of 2021. A 6.6 cm central left upper lobe mass is similar to prior exam. However, the remainder of the pulmonary nodules and masses have significantly progressed. Interlobular septal thickening is noted consistent with lymphangitic spread of tumor. The conglomerate masses result in multifocal airw ay narrowing as well as narrowing of multiple pulmonary arteries. Skeletal metastatic disease has pro gressed since prior exam. There is extensive destruction of the sternum and manubrium. Slight loss of height of the superior endplates of T2 and T3 is noted. Thoracic lymphadenopathy is similar to prior exam. Right breast masses are partially imaged on this exam. Hepatic metastatic disease has signific antly progressed. Index right hepatic lobe lesion measures 4.9 cm. It previously measured 4 cm. Possi ble subcentimeter lesion within the spleen is noted. IMPRESSION: 1. No pulmonary emboli identified. 2. Significant progression of extensive metastatic disease since CT of April 05, 2022, as detailed above. 3. Small bilateral pleural effusions, increased in size since prior study. ACT 112: Negative or not required by law. Electronically signed by: Shakir Tavarez M.D. 05/16/2022 10:57 AM
--- NOTE | 2022-05-16 14:36 | Hospitalist Progress Note ---
Date of Service May 16, 2022 Assessment & Plan (1) Acute respiratory failure with hypoxia: Plan: Patient presents to the hospital on account of 2 weeks worsening shortness of breath. -On arrival, noted to be hypoxic and initially required BiPaP but quickly weaned down to NC. 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 WBC mildly elevated. -IV zosyn in ED, cont. MRSA nares neg. -IV dexamethasone 10mg x1 in ED. Cont. with stress dosing IV dexamethasone 4mg daily. On 2mg po at home. -cont. home duoneb, breo ellipta (2) Pneumonia: Plan: Sepsis present on admission, possible due to lobar Pneumonia Did meet SIRS criteria on arrival. Blood cx pending. Markers of inflammation, CRP also elevated, but now trending down following antibiotics (3) Acute dyspnea: Plan: now resolved (4) Breast cancer metastasized to lung: Plan: #Metastatic breast cancer -h/o progressively worsening mets s/p radiation therapy. Follows with [place] [facility], further treatment deferred at last appointment. -has not had home keppra and memantine for seizure ppx (secondary to brain mets) in the last 2 weeks. Will cont. holding for now given no recent seizures. Consider restarting if concern for seizure. -X ray shows possibly worsening of tumor burden (5) Chest pain: Plan: Now resolved probably due to pneumonia (6) Elevated troponin: Plan: Probably due to demand ischemia although patient had some chest pain, which later resolved Trop has been trending down EKG did not show any ST changes (7) Demand ischemia: Plan: see above (8) Lobar pneumonia: Plan DVT ppx: lovenox FEN/GI: regular Code Status: full Dispo: PCU. 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 Per pt, a couple months ago was given a 6 month prognosis. Would highly consider palliative measures going forward. Admission and Anticipated Discharge Date Admission Date: May 15, 2022 Subjective patient seen and examined, SOB is better Review of Systems Review of Systems: All systems reviewed are negative, apart from the ones contained in the history. Physical Exam Physical Exam: The patient is awake, alert and oriented 3, well developed and well nourished, normocephalic and atraumatic, lying in bed and in no acute distress. HEENT--PERRL, EOMI, mucous membranes and oropharynx mildly dry Neck--supple. No JVD. No bruits. Thyroid normal, trachea midline, no adenopathy. Heart--normal S1 and S2. No murmurs, rubs or gallops. Lungs--Reduced air entry on auscultation Abdomen--normal bowel sounds and soft. Mild epigastric and left sided abdominal pain Extremities--no cyanosis or clubbing. No edema. Dermatologic--normal skin turgor, normal color, no abnormal lymph nodes, no rash. Neurologic--cranial nerves II through XII grossly intact. Rheumatologic--normal range of motion. Psychiatric--normal affect. Results & Data Results & Data ([facility]) Vital Signs (Past 12 Hours) Vital Signs Pulse Resp BP Pulse Ox Pulse Ox O2 Del Method O2 Del Method 05/16/22 13:37 94 Nasal Cannula 05/16/22 10:00 105 H 23 117/84 93 Nasal Cannula 05/16/22 09:00 105 H 116/90 92 Nasal Cannula 05/16/22 08:30 Room Air 05/16/22 08:00 77 108/76 96 Nasal Cannula 05/16/22 07:00 81 103/70 95 Nasal Cannula 05/16/22 06:00 83 22 114/85 95 Nasal Cannula 05/16/22 04:00 110 H 17 104/76 92 Nasal Cannula 05/16/22 03:00 93 H 17 95/69 L 93 Nasal Cannula O2 Flow Rate O2 Flow Rate 05/16/22 13:37 6 05/16/22 10:00 6 05/16/22 09:00 6 05/16/22 08:30 6 05/16/22 08:00 6 05/16/22 07:00 6 05/16/22 06:00 6 05/16/22 04:00 6 05/16/22 03:00 6 PG Care Time/CCT Total # of Minutes Spent Total Time Spent with Patient: Total time spent is greater than 50% in coordination of care (as documented) at patient's floor/unit and/or counseling patient: Coding Level of Care Code 07270 Subseq Hosp Care Lvl 2 Diagnoses Acute respiratory failure with hypoxia J96.01 Pneumonia J18.9 Acute dyspnea R06.00 Breast cancer metastasized to lung C50.919; C78.00 Chest pain R07.9 Elevated troponin R77.8 Demand ischemia I24.8 Lobar pneumonia J18.1 Time Spent (min) 35
--- NOTE | 2022-05-16 16:36 | Electrocardiogram Report ---
Test Reason : Blood Pressure : / mmHG Vent. Rate : 114 BPM Atrial Rate : 114 BPM P-R Int : 152 ms QRS Dur : 078 ms QT Int : 314 ms P-R-T Axes : 060 033 063 degrees QTc Int : 432 ms Poor data quality, interpretation may be adversely affected Sinus tachycardia Low voltage QRS Poor R wave progression, consider anterior VA vs. lead placement vs. LVH Abnormal ECG When compared with ECG of 04-APR-2022 23:54, Minimal criteria for Anterior infarct are now Present Confirmed by Silvio Mittal ([id number]) on 05/16/2022 4:36:08 PM Referred By: REFERRED SELF Confirmed By:Silvio Mittal
[2022-05-16] MEDS ORDERED: MELATONIN 3 MG TAB PO STA (21:44)
[2022-05-16] MEDS: MELATONIN 3 MG TAB PO SCH (22:35)
[2022-05-16] MEDS ORDERED: KETOROLAC TROMETHAMINE 15 MG/ML VIAL IV ONE (23:14)
[2022-05-16] MEDS: LORazepam 0.5 MG TAB PO PRN (23:31)
[2022-05-17] MEDS: PIPERACILLIN/TAZOBACTAM 4.5 GM in DEXTROSE 5% 100 ML IV SCH ×4 (00:52→22:59)
--- NOTE | 2022-05-17 05:56 | Billing Data ---
Date of Service May 17, 2022 Coding Level of Care Code 82186 Initial Inpt Care Lvl 3
[2022-05-17 07:07] LABS: Hematocrit (blood only) 38.9 % (34.1-44.9); Hemoglobin 12.8 g/dl (12.0-16.0); Mean Corpuscular Hgb Conc 32.9 g/dL (32.0-36.0); Mean Corpuscular Volume 88.2 fL (80.0-100.0); Mean Platelet Volume 10.8 fL (9.4-12.3); Platelet Count 268 K/uL (130-400); RDW Coefficient of Variation 15.4 % (11.5-14.5); RDW Standard Deviation 49.1 fL (36.4-46.3); Red Blood Count 4.41 M/uL (3.93-5.22); White Blood Count 9.66 K/ul (4.8-10.8)
[2022-05-17 07:42] LABS: BUN Creatinine Ratio 31.8 (10-20); Calcium 8.4 mg/dl (8.5-10.1); Creatinine Clr Calc Pharmacy 93.9 ml/min; Est GFR (African American) 124.5 ml/min; Est GFR (Non-African American) 107.4 ml/min
[2022-05-17] MEDS: FLUTICASONE/VILANTEROL 100/25MCG 14 PUFFS/INHALER INH SCH (08:35)
[2022-05-17] MEDS: dexAMETHasone 4 MG in SYRINGE 0 ML IV SCH (08:35)
--- NOTE | 2022-05-17 14:24 | Hospitalist Progress Note ---
Date of Service May 17, 2022 Assessment & Plan (1) Acute respiratory failure with hypoxia: Plan: Patient presents to the hospital on account of 2 weeks worsening shortness of breath. -On arrival, noted to be hypoxic and initially required BiPaP but quickly weaned down to NC. 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 -IV zosyn in ED, cont. MRSA nares neg. -IV dexamethasone 10mg x1 in ED. Cont. with stress dosing IV dexamethasone 4mg daily. On 2mg po at home. -Today, she feels less short of breath, but still struggles with exertion -cont. home duoneb, breo ellipta, supplemental oxygen (2) Pneumonia: Plan: Sepsis present on admission, possible due to lobar Pneumonia Did meet SIRS criteria on arrival. Now improving following antibiotics Blood cx negative so far Markers of inflammation, CRP also elevated, but now trending down following antibiotics (3) Acute dyspnea: Plan: now resolved (4) Breast cancer metastasized to lung: Plan: #Metastatic breast cancer -h/o progressively worsening mets s/p radiation therapy. Follows with [place], further treatment deferred at last appointment. -has not had home keppra and memantine for seizure ppx (secondary to brain mets) in the last 2 weeks. Will cont. holding for now given no recent seizures. Consider restarting if concern for seizure. -X ray shows possibly worsening of tumor burden (5) Chest pain: Plan: Now resolved probably due to pneumonia (6) Elevated troponin: Plan: Probably due to demand ischemia although patient had some chest pain, which later resolved Trop has been trending down EKG did not show any ST changes (7) Demand ischemia: Plan: see above (8) Lobar pneumonia: Plan DVT ppx: lovenox FEN/GI: regular Code Status: full Dispo: PCU. Poor chcf prognosis. Per pt, a couple months ago was given a 6 month prognosis. Would highly consider palliative measures going forward. Admission and Anticipated Discharge Date Admission Date: May 15, 2022 Subjective patient seen and examined, SOB is better, but still feels very weak Review of Systems Review of Systems: All systems reviewed are negative, apart from the ones contained in the history. Physical Exam Physical Exam: The patient is awake, alert and oriented 3, well developed and well nourished, normocephalic and atraumatic, lying in bed and in no acute distress. HEENT--PERRL, EOMI, mucous membranes and oropharynx mildly dry Neck--supple. No JVD. No bruits. Thyroid normal, trachea midline, no adenopathy. Heart--normal S1 and S2. No murmurs, rubs or gallops. Lungs--Reduced air entry on auscultation Abdomen--normal bowel sounds and soft. Mild epigastric and left sided abdominal pain Extremities--no cyanosis or clubbing. No edema. Dermatologic--normal skin turgor, normal color, no abnormal lymph nodes, no rash. Neurologic--cranial nerves II through XII grossly intact. Rheumatologic--normal range of motion. Psychiatric--normal affect. Results & Data Results & Data ([facility]) Vital Signs (Past 12 Hours) Vital Signs Temp Pulse Resp BP BP Pulse Ox Pulse Ox 05/17/22 13:00 93 05/17/22 12:04 98.6 F 89 20 105/73 96 05/17/22 08:00 05/17/22 08:02 98.1 F 89 19 96/64 L 95 05/17/22 02:50 97.9 F 87 18 107/68 95 O2 Del Method O2 Del Method O2 Flow Rate O2 Flow Rate 05/17/22 13:00 Nasal Cannula 6 05/17/22 12:04 Nasal Cannula 6.0 05/17/22 08:00 Nasal Cannula 6 05/17/22 08:02 Nasal Cannula 6.0 05/17/22 02:50 Nasal Cannula 6 PG Care Time/CCT Total # of Minutes Spent Total Time Spent with Patient: Total time spent is greater than 50% in coordination of care (as documented) at patient's floor/unit and/or counseling patient: Coding Level of Care Code 72660 Subseq Hosp Care Lvl 2 Diagnoses Acute respiratory failure with hypoxia J96.01 Pneumonia J18.9 Acute dyspnea R06.00 Breast cancer metastasized to lung C50.919; C78.00 Laterality: unspecified laterality Chest pain R07.9 Elevated troponin R77.8 Demand ischemia I24.8 Lobar pneumonia J18.1 Time Spent (min) 35 (1) Breast cancer metastasized to lung Laterality: unspecified laterality Qualified Code(s): C50.919 - Malignant neoplasm of unspecified site of unspecified female breast; C78.00 - Secondary malignant neoplasm of unspecified lung
[2022-05-17] MEDS: ENOXAPARIN INJ 40 MG/0.4 ML SYR SQ SCH (19:32)
[2022-05-17] MEDS: MELATONIN 3 MG TAB PO SCH (19:36)
[2022-05-17] MEDS: LORazepam 0.5 MG TAB PO PRN (19:36)
[2022-05-18 06:44] LABS: Hematocrit (blood only) 38.2 % (34.1-44.9); Hemoglobin 12.7 g/dl (12.0-16.0); Mean Corpuscular Hemoglobin 29.3 pg (25.0-34.0); Mean Corpuscular Hgb Conc 33.2 g/dL (32.0-36.0); Mean Platelet Volume 10.7 fL (9.4-12.3); Platelet Count 252 K/uL (130-400); RDW Coefficient of Variation 15.1 % (11.5-14.5); RDW Standard Deviation 47.8 fL (36.4-46.3); Red Blood Count 4.34 M/uL (3.93-5.22)
[2022-05-18 06:59] LABS: BUN Creatinine Ratio 24.1 (10-20); Calcium 8.2 mg/dl (8.5-10.1); Creatinine Clr Calc Pharmacy 106.9 ml/min; Est GFR (African American) 129.9 ml/min; Est GFR (Non-African American) 112.1 ml/min
[2022-05-18] MEDS: PIPERACILLIN/TAZOBACTAM 4.5 GM in DEXTROSE 5% 100 ML IV SCH ×3 (09:00→23:59)
[2022-05-18] MEDS: dexAMETHasone 4 MG in SYRINGE 0 ML IV SCH (09:01)
[2022-05-18] MEDS: FLUTICASONE/VILANTEROL 100/25MCG 14 PUFFS/INHALER INH SCH (09:01)
[2022-05-18] MEDS: LORazepam 0.5 MG TAB PO PRN ×2 (09:10→19:57)
[2022-05-18] MEDS ORDERED: MoRPHine SULFATE 5 MG/0.25 ML UDP PO PRN (14:34)
--- NOTE | 2022-05-18 14:51 | Hospitalist Progress Note ---
Date of Service May 18, 2022 Assessment & Plan (1) Acute respiratory failure with hypoxia: Plan: Patient presents to the hospital on account of 2 weeks worsening shortness of breath. -On arrival, noted to be hypoxic and initially required BiPaP but quickly weaned down to NC. 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 -IV zosyn in ED, cont. MRSA nares neg. -IV dexamethasone 10mg x1 in ED. Cont. with stress dosing IV dexamethasone 4mg daily. On 2mg po at home. -Today, she feels less short of breath, but still struggles with exertion -Now on oxygen mask, 6L -She continus to deteriorate Will consult palliative to discuss goals of care -cont. home duoneb, breo ellipta, supplemental oxygen (2) Pneumonia: Plan: Sepsis present on admission, possible due to lobar Pneumonia Did meet SIRS criteria on arrival. Now improving following antibiotics Blood cx negative so far Markers of inflammation, CRP also elevated, but now trending down following antibiotics (3) Acute dyspnea: Plan: now resolved (4) Breast cancer metastasized to lung: Plan: #Metastatic breast cancer -h/o progressively worsening mets s/p radiation therapy. Follows with [facility], further treatment deferred at last appointment. -has not had home keppra and memantine for seizure ppx (secondary to brain mets) in the last 2 weeks. Will cont. holding for now given no recent seizures. Consider restarting if concern for seizure. -X ray shows possibly worsening of tumor burden -Consult palliative to discuss goals of care (5) Chest pain: Plan: Now resolved probably due to pneumonia (6) Elevated troponin: Plan: Probably due to demand ischemia although patient had some chest pain, which later resolved Trop has been trending down EKG did not show any ST changes (7) Demand ischemia: Plan: see above (8) Lobar pneumonia: Plan DVT ppx: lovenox FEN/GI: regular Code Status: full Dispo: PCU. Poor intermediate card tender prognosis. Per pt, a couple months ago was given a 6 month prognosis. Admission and Anticipated Discharge Date Admission Date: May 15, 2022 Subjective patient seen and examined, SOB is better, but still feels very weak, mom is at the bedside Review of Systems Review of Systems: All systems reviewed are negative, apart from the ones contained in the history. Physical Exam Physical Exam: The patient is awake, alert and oriented 3, well developed and well nourished, normocephalic and atraumatic, lying in bed and in no acute distress. HEENT--PERRL, EOMI, mucous membranes and oropharynx mildly dry Neck--supple. No JVD. No bruits. Thyroid normal, trachea midline, no adenopathy. Heart--normal S1 and S2. No murmurs, rubs or gallops. Lungs--Reduced air entry on auscultation Abdomen--normal bowel sounds and soft. Mild epigastric and left sided abdominal pain Extremities--no cyanosis or clubbing. No edema. Dermatologic--normal skin turgor, normal color, no abnormal lymph nodes, no rash. Neurologic--cranial nerves II through XII grossly intact. Rheumatologic--normal range of motion. Psychiatric--normal affect. Results & Data Results & Data ([facility]) Vital Signs (Past 12 Hours) Vital Signs Temp Pulse Resp BP Pulse Ox O2 Del Method O2 Flow Rate 05/18/22 12:39 Nasal Cannula 6 05/18/22 11:28 98.1 F 95 H 15 106/70 95 Oxymask 6 05/18/22 08:16 97.9 F 101 H 15 104/69 94 Nasal Cannula 5 05/18/22 03:11 98.1 F 91 H 18 112/74 93 Nasal Cannula 6 PG Care Time/CCT Total # of Minutes Spent Total Time Spent with Patient: Total time spent is greater than 50% in coordination of care (as documented) at patient's floor/unit and/or counseling patient: Coding Level of Care Code 07994 Subseq Hosp Care Lvl 2 Diagnoses Acute respiratory failure with hypoxia J96.01 Pneumonia J18.9 Acute dyspnea R06.00 Breast cancer metastasized to lung C50.919; C78.00 Laterality: unspecified laterality Chest pain R07.9 Elevated troponin R77.8 Demand ischemia I24.8 Lobar pneumonia J18.1 Time Spent (min) 35 (1) Breast cancer metastasized to lung Laterality: unspecified laterality Qualified Code(s): C50.919 - Malignant neoplasm of unspecified site of unspecified female breast; C78.00 - Secondary malignant neoplasm of unspecified lung
--- NOTE | 2022-05-18 16:05 | Palliative Care Consultation ---
Date of Consultation May 18, 2022 Assessment & Plan (1) Acute dyspnea: Improved with O2 and steroids. WE discussed use of low dose opioid to relieve air hunger. SHe is concerned about getting addicted. We discussed careful, monitored management of medication for use as indicated. (2) Chest pain: Non cardiac. She attributes this to coughing. Likely also related to extensive metastatic disease. She has been taking aspirin for this. (3) Anxiety: She is understandably very anxious about feeling short of breath and feels that her anxiety is making her breathing worse. She does get some relief with ativan. WE discussed using very low dose opioid to relieve air hunger which would help with cough and reduce her anxiety. She is considering whether she is comfortable with trying this. (4) Cough: Productive at times. She is afraid of choking on secretions and does not want to suppress cough. She has been using expectorants with some relief. (5) Palliative care encounter: Kalina realizes that her cancer is spreading and that she is going to . She remains hopeful that the treatments through her nutritional oncologist will help slow disease progression and does hope that God will heal her. She has strong vika and while she hopes for healing, she is trying to accept that God's will may be for her to . She is tearful when she talks about dying and mentions that she would like to write letters for her children. She tells me that she knows that they will miss her but they, too, have strong vika and know that they would see her again. We discussed hoping for healing from God or possibly her other treatments but also planning for the possibility that she may be approaching her dying time. She acknowledges this but has dyspnea with conversation and is exhausted at this point in our visit. SHe is agreeable to further discussion tomorrow. Her is at bedside. He is very supportive and also willing to discuss further. History of Present Illness Reason for Consultation: goals of care Requesting Physician: Dr. 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 She declined conventional treatment in favor of a more natural approach and has been working with a nutritional oncologist in [place]. She was admitted in late March with chest pain, shortness of breath and cough and found to have extensive metastatic disease to her lungs, liver, brain and bone. She was transferred to [facility] and received radiation therapy for her brain mets. Prior to that, she and her report that she had been doing relatively well at home. She returned to the ER with increased shortness of breath and noted to have disease progression since her admission in March. CHest CT shows lymphangitic carcinomatosis with enlargement of numerous pulmonary nodules causing airway and arterial narrowing. There is evidence of progressive liver and bony metastases as well. SHe has been on high flow O2 and bipap and is being treated for possible sepsis and post obstructive pneumonia. She is currently on 5L and notes that her breathing is a little better but still has dyspnea with conversation and minimal exertion. SHe complains of pain from coughing and tightness in her chest which makes her anxious. She has had some prn ativan with some relief. Allergies Allergy/AdvReac Type Severity Reaction Status Date / Time No Known Allergies Allergy Verified 05/15/22 22:00 Home Medications Medication Instructions Recorded Confirmed Type dexamethasone 2 mg tablet 2 mg PO QAM 04/05/22 05/15/22 History ascorbic acid (vitamin C) 1,000 mg 14 g PO QAM 05/15/22 05/15/22 History tablet (Vitamin C) ashtatianadha root extract 500 mg 1,000 mg PO HS 05/15/22 05/15/22 History capsule melatonin 5 mg capsule 5 mg PO HS 05/15/22 05/15/22 History mometasone-formoterol HFA 200 2 puff inhalation BID 05/15/22 05/15/22 History mcg-5 mcg/actuation aerosol inhaler (Dulera) omega 9-vwx-dpe-fish oil 1,000 mg 1 cap PO TID 05/15/22 05/15/22 History (120 mg-180 mg) capsule (Fish Oil) zinc gluconate 50 mg tablet 50 mg PO BID 05/15/22 05/15/22 History Patient History Medical History Breast cancer Surgical History No pertinent past surgical history Social History Smoking Status: Never smoker Hx Alcohol Use: No Hx Substance Use: No Preferred Language: Ethiopian Communication Ability: Effective Community Relations Liaison Required: No Beliefs That Will Affect Care: None marital status: Current Living Situation: Spouse and Family Feels Safe at Home: Yes Assistive Devices: None Review of Systems Review of Systems: ESAS Pain 1/3 Dyspnea 2/3 Nausea 1/3 DRowsiness 0/3 Anxiety 2/3 PPS 40% Physical Exam Constitutional: + ill appearing ENMT: Mouth: + dry oral mucous membranes O2 via face mask Respiratory: + uses accessory muscles and + tachypneic Cardiovascular: Rate/Rhythm: regular rate Musculoskeletal: Extremities: extremities normal to inspection Skin: warm and dry Neurologic: Speech / Cognition: normal cognition Psychiatric: Affect: + anxious affect Results & Data ([facility]) Vital Signs (Past 12 Hours) Vital Signs Temp Pulse Resp BP BP Pulse Ox O2 Del Method 05/18/22 15:06 97.9 F 77 19 101/68 93 Nasal Cannula 05/18/22 12:39 Nasal Cannula 05/18/22 11:28 98.1 F 95 H 15 106/70 95 Oxymask 05/18/22 08:16 97.9 F 101 H 15 104/69 94 Nasal Cannula O2 Flow Rate 05/18/22 15:06 5 05/18/22 12:39 6 05/18/22 11:28 6 05/18/22 08:16 5 PG Care Time/CCT Total # of Minutes Spent Total Time Spent: 68 Total Time Spent with Patient: Total time spent is greater than 50% in coordination of care (as documented) at patient's floor/unit and/or counseling patient: symptom management, goals of care, patient and family education and support Coding Level of Care Code 15138 Initial Inpt Care Lvl 2 Diagnoses Acute dyspnea R06.00 Chest pain R07.9 Anxiety F41.9 Cough R05.9 Palliative care encounter Z51.5
[2022-05-18] MEDS: ENOXAPARIN INJ 40 MG/0.4 ML SYR SQ SCH (19:12)
[2022-05-18] MEDS: MELATONIN 3 MG TAB PO SCH (19:57)
[2022-05-19] MEDS: dexAMETHasone 4 MG in SYRINGE 0 ML IV SCH (08:52)
[2022-05-19] MEDS: PIPERACILLIN/TAZOBACTAM 4.5 GM in DEXTROSE 5% 100 ML IV SCH ×3 (08:52→22:45)
[2022-05-19] MEDS: FLUTICASONE/VILANTEROL 100/25MCG 14 PUFFS/INHALER INH SCH (08:52)
--- NOTE | 2022-05-19 13:30 | Palliative Care Progress Note ---
Date of Service May 19, 2022 Assessment & Plan (1) Dyspnea: Plan: We discussed using morphine to relieve feeling of air hunger and work of breathing which would help to relieve her anxiety. While ativan may relieve her anxiety, it will not relieve her pain or dyspnea. She felt that the morphine also helped her chest pain but only for a few hours. She was on a very small dose and is agreeable to trying 5mg dose without ativan. (2) Anxiety: Plan: Strong connection to dyspnea. Monitor with use of morphine. In general, would not use both at the same time. (3) Palliative care encounter: Plan: We talked about her concerns about the future. She has expressed desire to write letters to her children but has not felt able to do that. We discussed other options like memory boxes or dictating messages through her . She is very tearful. She tells me that she is worried that she is approaching her dying time. She feels overwhelmed at times with trying to take all the medications and try to get better when she feels like she is going to . Assured her that it is ok to continue medications if she would like and at any point, if it feels overwhelming or if she would want to take only medications for comfort, we would respect that. Shifting focus to comfort would not be a failure or giving up on her part. Her is very supportive and they will discuss together. Admission and Anticipated Discharge Date Admission Date: May 15, 2022 Javier Gilman continues to have dyspnea at rest and with conversation. She has been on 5-6 L of O2 over the last 24 hours. She did have a dose of morphine last night as well as ativan and was still feeling sleepy this morning. Review of Systems Review of Systems: ESAS Pain 1/3 Dyspnea 2/3 Anxiety 2/3 Fatigue 2/3 PPS 40% Physical Exam Constitutional: + ill appearing; no acute distress ENMT: Mouth: oral mucous membranes not dry Respiratory: + uses accessory muscles tachypnea Cardiovascular: Rate/Rhythm: regular rate and regular rhythm Musculoskeletal: muscle atrophy Neurologic: Speech / Cognition: normal cognition Results & Data ([facility]) Vital Signs (Past 12 Hours) Vital Signs Temp Pulse Pulse Resp BP BP Pulse Ox 05/19/22 12:00 97.9 F 93 H 20 110/67 95 05/19/22 10:19 05/19/22 07:53 97.9 F 91 H 18 104/70 93 05/19/22 07:27 83 05/19/22 03:06 98.1 F 88 20 102/59 L 91 O2 Del Method O2 Flow Rate 05/19/22 12:00 Nasal Cannula 6 05/19/22 10:19 Nasal Cannula 5 05/19/22 07:53 Oxymask 5 05/19/22 07:27 05/19/22 03:06 Oxymask 5 PG Care Time/CCT Total # of Minutes Spent Total Time Spent: 43 Total Time Spent with Patient: Total time spent is greater than 50% in coordination of care (as documented) at patient's floor/unit and/or counseling patient: symptom management, goals of care, patient and family education and support Coding Level of Care Code 88434 Subseq Hosp Care Lvl 3 Diagnoses Dyspnea R06.00 Anxiety F41.9 Palliative care encounter Z51.5
--- NOTE | 2022-05-19 14:15 | Hospitalist Progress Note ---
Date of Service May 19, 2022 Assessment & Plan (1) Acute respiratory failure with hypoxia: Plan: Patient presents to the hospital on account of worsening shortness of breath. -On arrival, noted to be hypoxic and initially required BiPaP but quickly weaned down to NC. 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 -IV zosyn in ED, cont. MRSA nares neg. -IV dexamethasone 10mg x1 in ED. Cont. with stress dosing IV dexamethasone 4mg daily. On 2mg po at home. -Today, she feels less short of breath, but still struggles with exertion -Now on oxygen mask, 6L -She continues to deteriorate, she continues to get weaker Palliative on board -cont. home duoneb, breo ellipta, supplemental oxygen (2) Pneumonia: Plan: Sepsis present on admission, possible due to lobar Pneumonia Did meet SIRS criteria on arrival. Markers of inflammation, CRP also elevated, but now wnl Resolved following antibiotics Blood cx negative so far (3) Acute dyspnea: Plan: now resolved (4) Breast cancer metastasized to lung: Plan: #Metastatic breast cancer -h/o progressively worsening mets s/p radiation therapy. Follows with [facility], further treatment deferred at last appointment. -has not had home keppra and memantine for seizure ppx (secondary to brain mets) in the last 2 weeks. Will cont. holding for now given no recent seizures. Consider restarting if concern for seizure. -X ray shows possibly worsening of tumor burden -Consult palliative to discuss goals of care (5) Chest pain: Plan: Now resolved probably due to pneumonia (6) Elevated troponin: Plan: Probably due to demand ischemia although patient had some chest pain, which later resolved Trop has been trending down EKG did not show any ST changes (7) Demand ischemia: Plan: see above (8) Lobar pneumonia: Plan DVT ppx: lovenox FEN/GI: regular Code Status: full Dispo: Plan is home with home oxygen and home health when arranged Admission and Anticipated Discharge Date Admission Date: May 15, 2022 Subjective patient seen and examined, still on 5l of oxygen, gets short of breath even on mild exertion Review of Systems Review of Systems: All systems reviewed are negative, apart from the ones contained in the history. Physical Exam Physical Exam: The patient is awake, alert and oriented 3, well developed and well nourished, normocephalic and atraumatic, lying in bed and in no acute distress. HEENT--PERRL, EOMI, mucous membranes and oropharynx mildly dry Neck--supple. No JVD. No bruits. Thyroid normal, trachea midline, no adenopathy. Heart--normal S1 and S2. No murmurs, rubs or gallops. Lungs--Reduced air entry on auscultation Abdomen--normal bowel sounds and soft. Mild epigastric and left sided abdominal pain Extremities--no cyanosis or clubbing. No edema. Dermatologic--normal skin turgor, normal color, no abnormal lymph nodes, no rash. Neurologic--cranial nerves II through XII grossly intact. Rheumatologic--normal range of motion. Psychiatric--normal affect. Results & Data Results & Data ([facility]) Vital Signs (Past 12 Hours) Vital Signs Temp Pulse Pulse Resp BP BP Pulse Ox 05/19/22 12:00 97.9 F 93 H 20 110/67 95 05/19/22 10:19 05/19/22 07:53 97.9 F 91 H 18 104/70 93 05/19/22 07:27 83 05/19/22 03:06 98.1 F 88 20 102/59 L 91 O2 Del Method O2 Flow Rate 05/19/22 12:00 Nasal Cannula 6 05/19/22 10:19 Nasal Cannula 5 05/19/22 07:53 Oxymask 5 05/19/22 07:27 05/19/22 03:06 Oxymask 5 PG Care Time/CCT Total # of Minutes Spent Total Time Spent with Patient: Total time spent is greater than 50% in coordination of care (as documented) at patient's floor/unit and/or counseling patient: Coding Level of Care Code 16905 Subseq Hosp Care Lvl 2 Diagnoses Acute respiratory failure with hypoxia J96.01 Pneumonia J18.9 Acute dyspnea R06.00 Breast cancer metastasized to lung C50.919; C78.00 Laterality: unspecified laterality Chest pain R07.9 Elevated troponin R77.8 Demand ischemia I24.8 Lobar pneumonia J18.1 Time Spent (min) 35 (1) Breast cancer metastasized to lung Laterality: unspecified laterality Qualified Code(s): C50.919 - Malignant neoplasm of unspecified site of unspecified female breast; C78.00 - Secondary malignant neoplasm of unspecified lung
[2022-05-19] MEDS: ADVANCED PROBIOTIC 1250 MG CAPSULE PO SCH (18:29)
[2022-05-19] MEDS: MoRPHine SULFATE 5 MG/0.25 ML UDP PO PRN (18:30)
[2022-05-19] MEDS: ENOXAPARIN INJ 40 MG/0.4 ML SYR SQ SCH (19:46)
[2022-05-19] MEDS: MELATONIN 3 MG TAB PO SCH (22:45)
[2022-05-20] MEDS: MoRPHine SULFATE 5 MG/0.25 ML UDP PO PRN ×2 (01:41→09:05)
[2022-05-20] MEDS: ADVANCED PROBIOTIC 1250 MG CAPSULE PO SCH (08:16)
[2022-05-20] MEDS: FLUTICASONE/VILANTEROL 100/25MCG 14 PUFFS/INHALER INH SCH (08:16)
[2022-05-20] MEDS: dexAMETHasone 4 MG in SYRINGE 0 ML IV SCH (08:20)
[2022-05-20] MEDS: PIPERACILLIN/TAZOBACTAM 4.5 GM in DEXTROSE 5% 100 ML IV SCH (08:20)
--- NOTE | 2022-05-20 13:58 | Discharge Summary ---
Date of Service May 20, 2022 Admission HPI Per Admitting Provider 46 yo female PMHx breast cancer with mets s/p radiation therapy presents for shortness of breath. Symptoms progressively worsening over the past 2 weeks. Associated mild cough with subsequent chest pain. Denies fevers, chills, congestion, sore throat, abd pain, N/V/D, dysuria. Follows with oncology at [facility]. Last seen a couple of months ago s/p radiation therapy. Decision was made to not undergo chemo or alternative treatment for cancer due to limited life expectancy. Of note, on seizure ppx with keppra and memantine both of which she has not had over the past couple of weeks due to not having meds, denies seizures during this time. Upon presenting to the ED, did require bipap but weened to nasal cannula. Principal Diagnosis metastatic breast cancer, Lobar PNA Discharge Exam The patient is awake, alert and oriented 3, well developed and well nourished, normocephalic and atraumatic, lying in bed and in no acute distress. HEENT--PERRL, EOMI, mucous membranes and oropharynx mildly dry Neck--supple. No JVD. No bruits. Thyroid normal, trachea midline, no adenopathy. Heart--normal S1 and S2. No murmurs, rubs or gallops. Lungs--Reduced air entry on auscultation Abdomen--normal bowel sounds and soft. Mild epigastric and left sided abdominal pain Extremities--no cyanosis or clubbing. No edema. Dermatologic--normal skin turgor, normal color, no abnormal lymph nodes, no rash. Neurologic--cranial nerves II through XII grossly intact. Rheumatologic--normal range of motion. Psychiatric--normal affect. Discharge Data Allergies Allergy/AdvReac Type Severity Reaction Status Date / Time No Known Allergies Allergy Verified 05/15/22 22:00 Consultations 05/15/22 21:36 ED Decision to Admit Stat 05/18/22 10:36 Consult Palliative Care Routine Ordered Studies 05/15/22 19:35 CT angio chest PE protocol Urgent Hospital Course (1) Acute respiratory failure with hypoxia: Patient presents to the hospital on account of worsening shortness of breath. -On arrival, noted to be hypoxic and initially required BiPaP but quickly weaned down to NC. 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 -IV zosyn in ED, cont. MRSA nares neg. -IV dexamethasone 10mg x1 in ED. Cont. with stress dosing IV dexamethasone 4mg daily. On 2mg po at home. -Today, she feels less short of breath, but still struggles with exertion -Now on oxygen mask, 5L -She continues to deteriorate, she continues to get weaker Palliative on board -cont. home duoneb, breo ellipta, supplemental oxygen -Discharge home with home oxygen and home health (2) Pneumonia: Sepsis present on admission, possible due to lobar Pneumonia Did meet SIRS criteria on arrival. Markers of inflammation, CRP also elevated, but now wnl Resolved following antibiotics, she completed a course Blood cx negative so far (3) Acute dyspnea: now resolved (4) Breast cancer metastasized to lung: #Metastatic breast cancer -h/o progressively worsening mets s/p radiation therapy. Follows with [facility] oncology, further treatment deferred at last appointment. -has not had home keppra and memantine for seizure ppx (secondary to brain mets) in the last 2 weeks. Will cont. holding for now given no recent seizures. Consider restarting if concern for seizure. -X ray shows possibly worsening of tumor burden -Consult palliative to discuss goals of care (5) Chest pain: Now resolved probably due to pneumonia (6) Elevated troponin: Probably due to demand ischemia although patient had some chest pain, which later resolved Trop has been trending down EKG did not show any ST changes (7) Demand ischemia: see above (8) Lobar pneumonia: Plan DVT ppx: lovenox FEN/GI: regular Code Status: full Dispo: Plan is home with home oxygen and home health when arranged Total Time Total Time Spent Total Time Spent (In Minutes): 35 Discharge Plan Discharge Items Patient Disposition: Home - Home Health Services Reason For Visit: SHORTNESS OF BREATH Discharge Diagnosis: metastatic breast cancer, Lobar PNA Activity: Resume your previous activity Non-emergency contact: Primary Care Provider Call non-emergency contact if: you have any medication questions Follow-up/Referrals: Osbaldo Garnica MD [Primary Care Provider] - Diet: Regular Addtl Attending Provider Instructions: please make appointment to follow up with your regular PCP Pending Studies at Discharge: No Stand-Alone Forms: My [facility], Smoking Cessation Medications and DC Order Prescriptions: New amoxicillin-pot clavulanate [Augmentin] 500-125 mg tablet 1 tab PO BID 7 Days Qty: 14 0RF Continued dexamethasone 2 mg Tablet 2 mg PO QAM Dulera 200-5 mcg/actuation HFA aerosol inhaler 2 puff INHALATION BID ascorbic acid (vitamin C) [Vitamin C] 1,000 mg Tablet 14 g PO QAM zinc gluconate 50 mg Tablet 50 mg PO BID omega 3-vlx-xyf-fish oil [Fish Oil] 1,000 mg (120 mg-180 mg) Capsule 1 cap PO TID melatonin 5 mg Capsule 5 mg PO HS Rx Instructions: 1-4 caps may increase sedative effect of RSO ashwagandha root extract 500 mg Capsule 1,000 mg PO HS Discharge Orders: Discharge Order (Routine); Ordered 05/20/22 Ordered By: Gabriel Barrow/Other Patient Handouts: Shortness of Breath Coping Admission Data Admit Date/Time: 05/15/22 22:50 Attending Provider: Gabriel Vyas Admit Provider: Percy Mares Primary Care Provider: Osbaldo Garnica Other Providers: Gilberto Nowak ; Verenice Soria ; William Gunter [facility] Other Interventions: Discharge Summary Assessment (RN) Last Done: 05/20/22 11:22 Coding Level of Care Code D/C DAY MANAGEMENT >30 MINS Diagnoses Acute respiratory failure with hypoxia J96.01 Pneumonia J18.9 Acute dyspnea R06.00 Breast cancer metastasized to lung C50.919; C78.00 Laterality: unspecified laterality Chest pain R07.9 Elevated troponin R77.8 Demand ischemia I24.8 Lobar pneumonia J18.1 Time Spent (min) 35
== END 2022-05-20 12:50 | disposition home health service (06) | DRG 871 ==
LOC: ED 18:33 → SUATTDRO 22:50 → EDINP 22:50 → 2S 05-16 00:53